=== PATIENT | female | born 1990 | race African-American/Black ===

== ENCOUNTER 2018-04-25 23:25 | Inpatient (IN) | payer SELFPAY ==
[~2018-04-25] VITALS: Ht 162.6 cm; Wt 60.8 kg
[2018-04-25] MEDS ORDERED: IV NORMAL SALINE 1000ML BAG 1,000 ML IV SCH (23:28)
[2018-04-25] MEDS ORDERED: ALBUTEROL SULFATE 2.5 MG/3 ML NEBU. ONE ×2 (23:47→23:48)
[2018-04-25 23:54] LABS: BASO # 0.1 x10^3/uL (0.0-0.2); BASO % 0 % (0-3); EOS # 1.5 x10^3/uL (0.0-0.7); EOS % 9 % (0-3); HEMATOCRIT 40.3 % (36.0-47.0); HEMOGLOBIN 13.2 g/dL (12.0-15.5); LYMPH % 46 % (24-48); MEAN CORPUSCULAR HEMOGLOBIN 34 pg (25-35); MEAN CORPUSCULAR HGB CONC 33 g/dL (31-37); MEAN CORPUSCULAR VOLUME 102 fL (79-100); MONO # 0.9 x10^3/uL (0.0-1.1); MONO % 5 % (0-9); NEUT # 6.9 x10^3uL (1.8-7.7); NEUT % 40 % (31-73); PLATELET COUNT 351 x10^3/uL (140-400); RED BLOOD COUNT 3.93 x10^6/uL (3.50-5.40); RED CELL DISTRIBUTION WIDTH 13.4 % (11.5-14.5); WHITE BLOOD COUNT 17.3 x10^3/uL (4.0-11.0)
[2018-04-25] MEDS ORDERED: MORPHINE SULFATE 4 MG/ML VIAL. ONE (23:56)
--- NOTE | 2018-04-25 23:56 | PHYS DOC ---
Adult General Chief Complaint Chief Complaint: DYSPNEA/RESPIRATOY DISTRESS HPI HPI Patient is an unknown aged female who presents via EMS with report of shortness of breath. EMS indicates that patient had called with shortness of breath and had been alert initially but was uncooperative with questioning. Patient was given a total of 2 DuoNeb treatments while in route and EMS indicates that approximately 3 minutes prior to arrival patient went unresponsive and started with what they described his guppy breathing. Unable to obtain any further history due to severity of patient condition. Review of Systems Review of Systems Constitutional: Unable to obtain[] Respiratory: Positive wheezing and shortness of breath [] Cardiovascular: Unable to obtain history[] GI: Unable to obtain history[] Neurologic: Positive decreased mental status[] Unable to fully assess review of systems due to severity of patient condition. Current Medications Current Medications Current Medications Medications (Trade) Dose Ordered Sig/Neo Start Time Stop Time Status Last Admin Dose Admin Albuterol Sulfate (Ventolin Neb Soln) 2.5 mg STK-MED ONCE 04/25/18 23:48 04/25/18 23:49 DC Chlorhexidine Gluconate (Peridex) 15 ml BID 04/26/18 09:00 Etomidate (Amidate) 20 mg 1X ONCE 04/26/18 01:00 04/26/18 01:01 DC 04/25/18 23:36 20 MG Magnesium Sulfate 50 ml @ 25 mls/hr 1X ONCE 04/26/18 01:30 04/26/18 03:29 04/26/18 01:40 25 MLS/HR Methylprednisolone Sodium Succinate (SOLU-Medrol 125MG VIAL) 125 mg 1X ONCE 04/26/18 01:30 04/26/18 01:31 DC 04/26/18 01:40 125 MG Midazolam HCl (Versed) 5 mg 1X ONCE 04/26/18 02:15 04/26/18 02:16 04/26/18 01:58 5 MG Morphine Sulfate (Morphine Sulfate) 4 mg 1X ONCE 04/26/18 00:00 04/26/18 00:09 DC 04/25/18 23:58 4 MG Piperacillin Sod/ Tazobactam Sod 3.375 gm/Sodium Chloride 50 ml @ 100 mls/hr 1X ONCE 04/26/18 02:30 04/26/18 02:59 Propofol 100 ml @ 0 mls/hr CONT PRN 04/26/18 00:15 04/26/18 00:04 0.8 MLS/HR Sodium Chloride 1,000 ml @ 1,000 mls/hr 1X ONCE 04/26/18 02:00 04/26/18 02:59 Vancomycin HCl 250 ml @ 250 mls/hr 1X ONCE 04/26/18 02:00 04/26/18 02:59 Vecuronium Durant (Norcuron Bolus) 10 mg 1X ONCE 04/26/18 01:00 04/26/18 01:01 DC 04/25/18 23:36 10 MG Allergies Allergies Allergies Coded Allergies Type Severity Reaction Last Updated Verified Unable to Assess 04/26/18 No Physical Exam Physical Exam Constitutional: Well developed, well nourished, in respiratory distress. [] HENT: Normocephalic, atraumatic, bilateral external ears normal, oropharynx moist, no oral exudates, nose normal. [] Eyes: PERRLA, conjunctiva normal, no discharge. [] Neck: Normal range of motion, positive JVD. [] Cardiovascular: Tachycardic rate with regular rhythm[] Lungs & Thorax: Diminished breath sounds are noted bilaterally with inspiratory and expiratory wheezes[] Abdomen: Bowel sounds normal, soft. [] Skin: Warm, dry, no erythema, no rash. [] Extremities: No tenderness, no cyanosis, no clubbing, no edema. [] Neurologic: Patient unresponsive on exam. Unable to fully assess neurological status due to mental state. [] Current Patient Data Vital Signs Vital Signs Date Time Temp Pulse Resp B/P (MAP) Pulse Ox O2 Delivery O2 Flow Rate FiO2 04/26/18 00:46 100 Ventilator 04/25/18 23:58 16 04/25/18 23:25 97.8 117 159/98 (118) 25.0 97.8 Lab Values Laboratory Tests Test 04/25/18 23:25 04/25/18 23:50 04/26/18 00:15 04/26/18 00:24 White Blood Count 17.3 x10^3/uL (4.0-11.0) H Red Blood Count 3.93 x10^6/uL (3.50-5.40) Hemoglobin 13.2 g/dL (12.0-15.5) Hematocrit 40.3 % (36.0-47.0) Mean Corpuscular Volume 102 fL (79-100) H Mean Corpuscular Hemoglobin 34 pg (25-35) Mean Corpuscular Hemoglobin Concent 33 g/dL (31-37) Red Cell Distribution Width 13.4 % (11.5-14.5) Platelet Count 351 x10^3/uL (140-400) Neutrophils (%) (Auto) 40 % (31-73) Lymphocytes (%) (Auto) 46 % (24-48) Monocytes (%) (Auto) 5 % (0-9) Eosinophils (%) (Auto) 9 % (0-3) H Basophils (%) (Auto) 0 % (0-3) Neutrophils # (Auto) 6.9 x10^3uL (1.8-7.7) Lymphocytes # (Auto) 8.0 x10^3/uL (1.0-4.8) H Monocytes # (Auto) 0.9 x10^3/uL (0.0-1.1) Eosinophils # (Auto) 1.5 x10^3/uL (0.0-0.7) H Basophils # (Auto) 0.1 x10^3/uL (0.0-0.2) Segmented Neutrophils % 40 % (35-66) Lymphocytes % 51 % (24-48) H Monocytes % 5 % (0-10) Eosinophils % 4 % (0-5) Platelet Estimate Adequate (ADEQUATE) D-Dimer (Nisreen) < 0.27 ug/mlFEU Sodium Level 144 mmol/L (136-145) Potassium Level 4.1 mmol/L (3.5-5.1) Chloride Level 105 mmol/L (98-107) Carbon Dioxide Level 30 mmol/L (21-32) Anion Gap 9 (6-14) Blood Urea Nitrogen 9 mg/dL (7-20) Creatinine 1.1 mg/dL (0.6-1.0) H Estimated GFR (Cockcroft-Gault) 73.2 BUN/Creatinine Ratio 8 (6-20) Glucose Level 209 mg/dL (70-99) H Lactic Acid Level 7.0 mmol/L (0.4-2.0) *H Calcium Level 9.0 mg/dL (8.5-10.1) Total Bilirubin 0.7 mg/dL (0.2-1.0) Aspartate Amino Transferase (AST) 21 U/L (15-37) Alanine Aminotransferase (ALT) 24 U/L (14-59) Alkaline Phosphatase 64 U/L (46-116) Troponin I Quantitative < 0.017 ng/mL (0.000-0.055) WB-Ivj-D-Type Natriuretic Peptide 81 pg/mL (0-124) Total Protein 7.4 g/dL (6.4-8.2) Albumin 3.8 g/dL (3.4-5.0) Albumin/Globulin Ratio 1.1 (1.0-1.7) Urine Collection Type Unknown Urine Color Yellow Urine Clarity Cloudy Urine pH 5.5 Urine Specific [place] 1.015 Urine Protein >=300 mg/dL (NEG-TRACE) Urine Glucose (UA) 500 mg/dL (NEG) Urine Ketones (Stick) Negative mg/dL (NEG) Urine Blood Large (NEG) Urine Nitrite Negative (NEG) Urine Bilirubin Negative (NEG) Urine Urobilinogen Dipstick 0.2 mg/dL (0.2 mg/dL) Urine Leukocyte Esterase Negative (NEG) Urine RBC 20-40 /HPF (0-2) Urine WBC Occ /HPF (0-4) Urine Squamous Epithelial Cells Mod /LPF Urine Amorphous Sediment Present /HPF Urine Bacteria 0 /HPF (0-FEW) Urine Mucus Marked /LPF Urine Opiates Screen Neg (NEG) Urine Methadone Screen Neg (NEG) Urine Barbiturates Neg (NEG) Urine Phencyclidine Screen Neg (NEG) Urine Amphetamine/Methamphetamine Neg (NEG) Urine Benzodiazepines Screen Neg (NEG) Urine Cocaine Screen Neg (NEG) Urine Cannabinoids Screen Pos (NEG) Urine Ethyl Alcohol Neg (NEG) O2 Saturation 99 % (92-99) Arterial Blood pH 7.10 (7.35-7.45) *L Arterial Blood pCO2 at Patient Temp 82 mmHg (35-46) *H Arterial Blood pO2 at Patient Temp 233 mmHg (85-108) H Arterial Blood HCO3 25 mmol/L (21-28) Arterial Blood Base Excess -7 mmol/L (-3-3) L FiO2 100 Influenza Type A Antigen Negative (NEGATIVE) Influenza Type B Antigen Negative (NEGATIVE) Laboratory Tests 04/25/18 23:25 Laboratory Tests 04/25/18 23:25 EKG EKG [] Radiology/Procedures Radiology/Procedures [] Course & Med Decision Making Course & Med Decision Making Pertinent Labs and Imaging studies reviewed. (See chart for details) Patient moved to room upon arrival was evaluated by ER medical staff and patient noted to be on nonrebreather mask with inadequate respirations. Patient unresponsive and at this point, patient and deemed appropriate for intubation. Endotracheal Intubation by me: Pre assessment performed. See preceding note for details. Pre-oxygenation performed with 100% oxygen RSI: Performed w/o complication or hypoxic events. Medications as ordered. Blade: #3 glide scope ET Tube: 7.5 cm Depth: 23 cm at the lip Intubation confirmed by colorimetric CO2, equal breath sounds, quiet over the stomach. Chest X-ray 1V Interpreted by me: cm above the kandy ET tube. Normal soft tissue, No pneumothorax. Patient's case has been discussed with Dr. Dixon. Patient will be admitted to ICU. Dr. Finch has also been consulted and agrees with current care. A total of 50 minutes of critical care time has been spent on this patient exclusive of separately billable procedures and has been inclusive of direct [id number] patient care, ordering and reviewing of both laboratory and radiological studies, discussion of patient's case with consultants, and finally on documentation of this patient's medical record.. Dragon Disclaimer Dragon Disclaimer This electronic medical record was generated, in whole or in part, using a voice recognition dictation system. Departure Departure Impression: Primary Impression: Acute hypoxemic respiratory failure Disposition: ADMITTED INPATIENT Admitting Physician: Nico Dixon Condition: GUARDED ANGELICA JOHNSON Jr. DO Apr 25, 2018 23:56
[2018-04-25] MEDS ORDERED: PROPOFOL 50 ML IV ONE (23:57)
[2018-04-26] VITALS (23 sets, daily range): BP systolic 82–130; BP diastolic 48–72
[2018-04-26] MEDS ORDERED: MORPHINE SULFATE 4 MG/ML VIAL. IV ONE
[2018-04-26 00:02] LABS: BILIRUBIN,URINE NEGATIVE (NEG); CLARITY,URINE CLOUDY; COLOR,URINE YELLOW; NITRITE,URINE NEGATIVE (NEG); PH,URINE 5.5; PROTEIN,URINE >=300 mg/dL (NEG-TRACE); UROBILINOGEN,URINE 0.2 mg/dL (0.2 mg/dL)
[2018-04-26] MEDS: PROPOFOL 100 ML IV PRN ×5 (00:04→21:57)
[2018-04-26 00:07] LABS: RBC,URINE 20-40 /HPF (0-2)
[2018-04-26 00:08] LABS: CREATININE 1.1 mg/dL (0.6-1.0); GFR 73.2; POTASSIUM 4.1 mmol/L (3.5-5.1)
[2018-04-26 00:08] LABS: AMORPHOUS SEDIMENT,UR PRESENT /HPF; BACTERIA,URINE 0 /HPF (0-FEW); SQUAMOUS EPITHELIAL CELL,UR MOD /LPF; WBC,URINE OCC /HPF (0-4)
[2018-04-26 00:16] LABS: ALBUMIN 3.8 g/dL (3.4-5.0); TOTAL PROTEIN 7.4 g/dL (6.4-8.2)
[2018-04-26 00:16] LABS: BASE EXCESS ABG -7 mmol/L (-3-3); HCO3 ABG 25 mmol/L (21-28); PO2 ABG 233 mmHg (85-108); SAT O2 ABG 99 % (92-99)
[2018-04-26 00:17] LABS: ALBUMIN/GLOBULIN RATIO 1.1 (1.0-1.7); TOTAL BILIRUBIN 0.7 mg/dL (0.2-1.0)
[2018-04-26 00:20] LABS: % EOS 4 % (0-5); % LYMPHS 51 % (24-48); % MONOS 5 % (0-10); % SEGS 40 % (35-66); PLT ESTIMATE ADEQUATE (ADEQUATE)
[2018-04-26 00:50] LABS: INFLUENZA A PATIENT NEGATIVE (NEGATIVE); INFLUENZA B PATIENT NEGATIVE (NEGATIVE)
[2018-04-26] MEDS ORDERED: VECURONIUM BOLUS 10 MG VIAL. IV ONE ×2 (01:00→06:59)
[2018-04-26] MEDS ORDERED: ETOMIDATE 20 MG/10 ML VIAL. IV ONE ×2 (01:00→06:59)
[2018-04-26 01:01] LABS: PCO2 ABG 82 mmHg (35-46)
[2018-04-26 01:02] LABS: FIO2 ABG 100
[2018-04-26] MEDS ORDERED: methylPREDNISolone SOD SUCC PF 125 MG/2 ML VIAL. IV ONE (01:30)
[2018-04-26] MEDS ORDERED: MAGNESIUM SULFATE 2GM 50 ML IV ONE (01:30)
[2018-04-26 01:47] LABS: BARBITURATES NEG (NEG); BENZODIAZEPINES NEG (NEG); CANNABINOIDS POS (NEG); COCAINE NEG (NEG); METHADONE NEG (NEG); OPIATES NEG (NEG); PHENCYCLIDINE NEG (NEG)
[2018-04-26 01:48] LABS: AMPHETAMINE/METHAMPHETAMINE NEG (NEG)
[2018-04-26] MEDS ORDERED: IV NORMAL SALINE 1000ML BAG 1,000 ML IV ONE ×3 (02:00→21:30)
[2018-04-26] MEDS ORDERED: VANCOMYCIN 1GM IVPB FOR OMNI 250 ML IV ONE (02:00)
[2018-04-26] MEDS ORDERED: MIDAZOLAM HCL/PF 5 MG/5 ML VIAL. IV ONE (02:15)
[2018-04-26] MEDS ORDERED: PROPOFOL 50 ML IV ONE (02:30)
[2018-04-26] MEDS ORDERED: PIPERACILLIN/TAZOBACTAM 3.375 GM in IV NORMAL SALINE 50ML 50 ML IV ONE (02:30)
[2018-04-26] MEDS: IV NORMAL SALINE 1000ML BAG 1,000 ML IV SCH ×3 (04:03→16:54)
[2018-04-26] MEDS ORDERED: VENTOLIN HFA18 GM INH (05:21)
[2018-04-26 05:40] LABS: BASE EXCESS ABG -3 mmol/L (-3-3); HCO3 ABG 23 mmol/L (21-28); PCO2 ABG 45 mmHg (35-46); PO2 ABG 407 mmHg (85-108); SAT O2 ABG 100 % (92-99)
[2018-04-26] MEDS: methylPREDNISolone SOD SUCC PF 125 MG/2 ML VIAL. IV SCH ×3 (05:49→17:48)
[2018-04-26 05:56] LABS: FIO2 ABG 80
--- NOTE | 2018-04-26 06:37 | EKG ---
[facility] [address] [place] [address] Test Date: 2018-04-26 Test Time: 00:06:31 Pat Name: NOELLE AGUIRRE Department: Room: [facility] Gender: F Diagnostic Technologist: : 1990 Requested By: ANGELICA JOHNSON Order Number: [id number] Reading MD: Measurements Intervals [place] Rate: 82 P: 80 WY: 154 QRS: 82 QRSD: 80 T: 59 QT: 390 QTc: 459 Interpretive Statements SINUS RHYTHM NO SPECIFIC ECG ABNORMALITIES RI6.01 No previous ECG available for comparison
[2018-04-26] MEDS ORDERED: MIDAZOLAM HCL/PF 5 MG/5 ML VIAL. ONE (07:00)
--- NOTE | 2018-04-26 07:55 | RAD ---
Portable chest, 04/25/2018: HISTORY: Difficulty breathing And ET tube is in place with its tip located 5 cm above the kandy. An NG tube extends into the proximal aspect of the stomach. A sidehole is projected over the region of the GE junction. The heart size is normal. The lungs are clear. There is no evidence of pleural fluid or pneumothorax. IMPRESSION: 1. The ET tube and NG tube are in satisfactory positions. 2. No acute cardiopulmonary abnormality is detected. Electronically signed by: Jackson Joseph MD (04/26/2018 7:52 AM) [facility]
[2018-04-26] MEDS ORDERED: IPRATRPIUM/ALBUTEROL 0.5/2.5MG 3 ML NEBU. NEB SCH (08:00)
[2018-04-26] MEDS: CHLORHEXIDINE 0.12% 15 ML MOUTHWASH. MM SCH ×2 (08:56→20:35)
[2018-04-26] MEDS ORDERED: ALBUTEROL SULFATE 2.5 MG/3 ML NEBU. NEB PRN (10:30)
--- NOTE | 2018-04-26 10:33 | PDOC ---
PULMONARY PROGRESS NOTES Vitals Vital Signs Date Time Temp Pulse Resp B/P (MAP) Pulse Ox O2 Delivery O2 Flow Rate FiO2 04/26/18 10:12 99 Ventilator 04/26/18 10:00 100 20 111/72 (85) 04/26/18 08:00 98.6 98.6 04/25/18 23:29 25.0 Labs Laboratory Tests Test 04/25/18 23:25 04/25/18 23:50 04/26/18 00:15 04/26/18 00:24 White Blood Count 17.3 x10^3/uL (4.0-11.0) Red Blood Count 3.93 x10^6/uL (3.50-5.40) Hemoglobin 13.2 g/dL (12.0-15.5) Hematocrit 40.3 % (36.0-47.0) Mean Corpuscular Volume 102 fL (79-100) Mean Corpuscular Hemoglobin 34 pg (25-35) Mean Corpuscular Hemoglobin Concent 33 g/dL (31-37) Red Cell Distribution Width 13.4 % (11.5-14.5) Platelet Count 351 x10^3/uL (140-400) Neutrophils (%) (Auto) 40 % (31-73) Lymphocytes (%) (Auto) 46 % (24-48) Monocytes (%) (Auto) 5 % (0-9) Eosinophils (%) (Auto) 9 % (0-3) Basophils (%) (Auto) 0 % (0-3) Neutrophils # (Auto) 6.9 x10^3uL (1.8-7.7) Lymphocytes # (Auto) 8.0 x10^3/uL (1.0-4.8) Monocytes # (Auto) 0.9 x10^3/uL (0.0-1.1) Eosinophils # (Auto) 1.5 x10^3/uL (0.0-0.7) Basophils # (Auto) 0.1 x10^3/uL (0.0-0.2) Segmented Neutrophils % 40 % (35-66) Lymphocytes % 51 % (24-48) Monocytes % 5 % (0-10) Eosinophils % 4 % (0-5) Platelet Estimate Adequate (ADEQUATE) D-Dimer (Nisreen) < 0.27 ug/mlFEU Sodium Level 144 mmol/L (136-145) Potassium Level 4.1 mmol/L (3.5-5.1) Chloride Level 105 mmol/L (98-107) Carbon Dioxide Level 30 mmol/L (21-32) Anion Gap 9 (6-14) Blood Urea Nitrogen 9 mg/dL (7-20) Creatinine 1.1 mg/dL (0.6-1.0) Estimated GFR (Cockcroft-Gault) 73.2 BUN/Creatinine Ratio 8 (6-20) Glucose Level 209 mg/dL (70-99) Lactic Acid Level 7.0 mmol/L (0.4-2.0) Calcium Level 9.0 mg/dL (8.5-10.1) Total Bilirubin 0.7 mg/dL (0.2-1.0) Aspartate Amino Transf (AST/SGOT) 21 U/L (15-37) Alanine Aminotransferase (ALT/SGPT) 24 U/L (14-59) Alkaline Phosphatase 64 U/L (46-116) Troponin I Quantitative < 0.017 ng/mL (0.000-0.055) PX-Klp-U-Type Natriuretic Peptide 81 pg/mL (0-124) Total Protein 7.4 g/dL (6.4-8.2) Albumin 3.8 g/dL (3.4-5.0) Albumin/Globulin Ratio 1.1 (1.0-1.7) Procalcitonin < 0.10 ng/mL (0.00-0.10) Urine Collection Type Unknown Urine Color Yellow Urine Clarity Cloudy Urine pH 5.5 Urine Specific [place] 1.015 Urine Protein >=300 mg/dL (NEG-TRACE) Urine Glucose (UA) 500 mg/dL (NEG) Urine Ketones (Stick) Negative mg/dL (NEG) Urine Blood Large (NEG) Urine Nitrite Negative (NEG) Urine Bilirubin Negative (NEG) Urine Urobilinogen Dipstick 0.2 mg/dL (0.2 mg/dL) Urine Leukocyte Esterase Negative (NEG) Urine RBC 20-40 /HPF (0-2) Urine WBC Occ /HPF (0-4) Urine Squamous Epithelial Cells Mod /LPF Urine Amorphous Sediment Present /HPF Urine Bacteria 0 /HPF (0-FEW) Urine Mucus Marked /LPF Urine Opiates Screen Neg (NEG) Urine Methadone Screen Neg (NEG) Urine Barbiturates Neg (NEG) Urine Phencyclidine Screen Neg (NEG) Urine Amphetamine/Methamphetamine Neg (NEG) Urine Benzodiazepines Screen Neg (NEG) Urine Cocaine Screen Neg (NEG) Urine Cannabinoids Screen Pos (NEG) Urine Ethyl Alcohol Neg (NEG) O2 Saturation 99 % (92-99) Arterial Blood pH 7.10 (7.35-7.45) Arterial Blood pCO2 at Patient Temp 82 mmHg (35-46) Arterial Blood pO2 at Patient Temp 233 mmHg (85-108) Arterial Blood HCO3 25 mmol/L (21-28) Arterial Blood Base Excess -7 mmol/L (-3-3) FiO2 100 Influenza Type A Antigen Negative (NEGATIVE) Influenza Type B Antigen Negative (NEGATIVE) Test 04/26/18 03:26 04/26/18 05:05 O2 Saturation 100 % (92-99) Arterial Blood pH 7.33 (7.35-7.45) Arterial Blood pCO2 at Patient Temp 45 mmHg (35-46) Arterial Blood pO2 at Patient Temp 407 mmHg (85-108) Arterial Blood HCO3 23 mmol/L (21-28) Arterial Blood Base Excess -3 mmol/L (-3-3) FiO2 80 Lactic Acid Level 2.9 mmol/L (0.4-2.0) Laboratory Tests Test 04/25/18 23:25 04/25/18 23:50 04/26/18 00:15 04/26/18 00:24 White Blood Count 17.3 x10^3/uL (4.0-11.0) Red Blood Count 3.93 x10^6/uL (3.50-5.40) Hemoglobin 13.2 g/dL (12.0-15.5) Hematocrit 40.3 % (36.0-47.0) Mean Corpuscular Volume 102 fL (79-100) Mean Corpuscular Hemoglobin 34 pg (25-35) Mean Corpuscular Hemoglobin Concent 33 g/dL (31-37) Red Cell Distribution Width 13.4 % (11.5-14.5) Platelet Count 351 x10^3/uL (140-400) Neutrophils (%) (Auto) 40 % (31-73) Lymphocytes (%) (Auto) 46 % (24-48) Monocytes (%) (Auto) 5 % (0-9) Eosinophils (%) (Auto) 9 % (0-3) Basophils (%) (Auto) 0 % (0-3) Neutrophils # (Auto) 6.9 x10^3uL (1.8-7.7) Lymphocytes # (Auto) 8.0 x10^3/uL (1.0-4.8) Monocytes # (Auto) 0.9 x10^3/uL (0.0-1.1) Eosinophils # (Auto) 1.5 x10^3/uL (0.0-0.7) Basophils # (Auto) 0.1 x10^3/uL (0.0-0.2) Segmented Neutrophils % 40 % (35-66) Lymphocytes % 51 % (24-48) Monocytes % 5 % (0-10) Eosinophils % 4 % (0-5) Platelet Estimate Adequate (ADEQUATE) D-Dimer (Nisreen) < 0.27 ug/mlFEU Sodium Level 144 mmol/L (136-145) Potassium Level 4.1 mmol/L (3.5-5.1) Chloride Level 105 mmol/L (98-107) Carbon Dioxide Level 30 mmol/L (21-32) Anion Gap 9 (6-14) Blood Urea Nitrogen 9 mg/dL (7-20) Creatinine 1.1 mg/dL (0.6-1.0) Estimated GFR (Cockcroft-Gault) 73.2 BUN/Creatinine Ratio 8 (6-20) Glucose Level 209 mg/dL (70-99) Lactic Acid Level 7.0 mmol/L (0.4-2.0) Calcium Level 9.0 mg/dL (8.5-10.1) Total Bilirubin 0.7 mg/dL (0.2-1.0) Aspartate Amino Transf (AST/SGOT) 21 U/L (15-37) Alanine Aminotransferase (ALT/SGPT) 24 U/L (14-59) Alkaline Phosphatase 64 U/L (46-116) Troponin I Quantitative < 0.017 ng/mL (0.000-0.055) ZM-Udq-N-Type Natriuretic Peptide 81 pg/mL (0-124) Total Protein 7.4 g/dL (6.4-8.2) Albumin 3.8 g/dL (3.4-5.0) Albumin/Globulin Ratio 1.1 (1.0-1.7) Procalcitonin < 0.10 ng/mL (0.00-0.10) Urine Collection Type Unknown Urine Color Yellow Urine Clarity Cloudy Urine pH 5.5 Urine Specific [place] 1.015 Urine Protein >=300 mg/dL (NEG-TRACE) Urine Glucose (UA) 500 mg/dL (NEG) Urine Ketones (Stick) Negative mg/dL (NEG) Urine Blood Large (NEG) Urine Nitrite Negative (NEG) Urine Bilirubin Negative (NEG) Urine Urobilinogen Dipstick 0.2 mg/dL (0.2 mg/dL) Urine Leukocyte Esterase Negative (NEG) Urine RBC 20-40 /HPF (0-2) Urine WBC Occ /HPF (0-4) Urine Squamous Epithelial Cells Mod /LPF Urine Amorphous Sediment Present /HPF Urine Bacteria 0 /HPF (0-FEW) Urine Mucus Marked /LPF Urine Opiates Screen Neg (NEG) Urine Methadone Screen Neg (NEG) Urine Barbiturates Neg (NEG) Urine Phencyclidine Screen Neg (NEG) Urine Amphetamine/Methamphetamine Neg (NEG) Urine Benzodiazepines Screen Neg (NEG) Urine Cocaine Screen Neg (NEG) Urine Cannabinoids Screen Pos (NEG) Urine Ethyl Alcohol Neg (NEG) O2 Saturation 99 % (92-99) Arterial Blood pH 7.10 (7.35-7.45) Arterial Blood pCO2 at Patient Temp 82 mmHg (35-46) Arterial Blood pO2 at Patient Temp 233 mmHg (85-108) Arterial Blood HCO3 25 mmol/L (21-28) Arterial Blood Base Excess -7 mmol/L (-3-3) FiO2 100 Influenza Type A Antigen Negative (NEGATIVE) Influenza Type B Antigen Negative (NEGATIVE) Test 04/26/18 03:26 04/26/18 05:05 O2 Saturation 100 % (92-99) Arterial Blood pH 7.33 (7.35-7.45) Arterial Blood pCO2 at Patient Temp 45 mmHg (35-46) Arterial Blood pO2 at Patient Temp 407 mmHg (85-108) Arterial Blood HCO3 23 mmol/L (21-28) Arterial Blood Base Excess -3 mmol/L (-3-3) FiO2 80 Lactic Acid Level 2.9 mmol/L (0.4-2.0) Medications Active Scripts Medications Dose Route/Sig Max Daily Dose Days Date Category Ventolin Hfa Inhaler (Albuterol Sulfate) 18 Gm Hfa.aer.ad 2 Puff INH Q4HRS PRN 04/26/18 Reported Impression . FULL NOTE DICTATED THANKS ASTHMA/RF SEE ORDERS YESI CASTANO MD Apr 26, 2018 10:33
[2018-04-26] MEDS: FAMOTIDINE 20 MG/2 ML VIAL IVP SCH ×2 (10:56→20:35)
[2018-04-26] MEDS: ENOXAPARIN 40 MG/0.4 ML SYRINGE. SQ SCH (10:57)
[2018-04-26] MEDS ORDERED: CHLORHEXIDINE 0.12% 15 ML MOUTHWASH. MM SCH (11:00)
--- NOTE | 2018-04-26 11:05 | HP ---
ADMIT DATE: 04/26/2018 CHIEF COMPLAINT: Respiratory failure. HISTORY OF PRESENT ILLNESS: The patient is a pleasant younger female who presented as a respiratory failure with EMS. Initially, we really did not even know her name. Apparently, now we have now discovered her real name. While in the ER, she had to be intubated because she was guppy breathing, had a fulminant respiratory failure. I have discussed the case with the ER physician. We have admitted her to the ICU room, would be consulting Pulmonary. PAST MEDICAL HISTORY: Unknown, but under her medication she is on albuterol, so I suspect she has asthma. ALLERGIES: None. FAMILY HISTORY: We think she probably has asthma in the family. SOCIAL HISTORY: I am not sure if she smokes, drinks or take drugs. She is on the vent. MEDICATIONS: Reviewed. She is on albuterol. REVIEW OF SYSTEMS: Unable to obtain. The patient is intubated. PHYSICAL EXAMINATION: VITAL SIGNS: Temperature afebrile, pulse 100, respirations 20, blood pressure 106/57, O2 sat 98%. GENERAL: She is on the ventilator. HEART: Distant S1, S2. LUNGS: Diffuse wheezing. ABDOMEN: Soft, positive bowel sounds. EXTREMITIES: Trace edema. SKIN: No rash. ENDOCRINE: No thyromegaly. LYMPHATICS: No cervical nodes. HEMATOPOIETIC: No bruising. NEUROLOGICAL: She is sedated. PSYCHIATRIC: Unobtainable. GENITOURINARY: Normal. LABORATORY DATA: White count 17. Lactic acid high at 7. Troponin is 0. Chest x-ray shows ET tube placement, no acute diseases. ASSESSMENT AND PLAN: Respiratory failure, suspect secondary to asthma. The patient has been admitted to the ICU. We are going to give her DuoNebs, try to wean her off the vent. We have consulted Pulmonary. Try to get her home meds going once we figure out what those are. Frequent labs. Full code. PROGNOSIS: Guarded. FIONA PICKENS DO DR: KATE/cassius JOB#: [id number] / [id number]
[2018-04-26] MEDS: IPRATRPIUM/ALBUTEROL 0.5/2.5MG 3 ML NEBU. NEB SCH ×3 (11:48→20:06)
--- NOTE | 2018-04-26 11:51 | CONS ---
DATE OF CONSULTATION: 04/26/2018 ATTENDING PHYSICIAN: Dr. Dixon. REASON FOR CONSULTATION: The patient seen in pulmonary consultation at the request of Dr. Dixon for acute status asthmaticus, intubated. HISTORY OF PRESENT ILLNESS: The patient is a 27-year-old that has a history of asthma. Her mother, who happens to work here in the laboratory, indicated that the patient has had asthma most of her life. Her mother really does not know specifics about her asthma. She did have asthma as a young child and was taking some medication. At one point, she was on Advair. Apparently, the patient's asthma is somewhat been under control for the last several years with minimal amount of albuterol use. The patient does not see a physician. She has no insurance. She is currently on no medication. Last night, she presented with EMS, apparently EMS was summoned at home for shortness of air. She was alert initially, but then became unresponsive. She was given some DuoNebs. Upon arrival to the Emergency Department, the patient went unresponsive. She had some "guppy" breathing. She was intubated and placed on mechanical ventilation. I discussed the case last evening with the Emergency Room physician, Dr. George. The patient was intubated, placed on pressure control ventilation. Initially, she required high pressure around 40-50 to give her a decent tidal volume of approximately 200-300. She had an arterial blood gas revealing a pH of 7.10, PaCO2 of 82, pO2 of 233. This morning, the patient continues to be on mechanical ventilation. She is sedated. Her arterial blood gas revealed a pH of 7.33, PaCO2 of 45, PaO2 of 407. Serology for influenza was negative. Toxicology screen was positive for cannabinoid. UA was likewise positive for possible infection. Her lactic acid level has come down nicely. White count is elevated. Hemoglobin and hematocrit were noted. Chest x-ray was reviewed, no acute infiltrates. PAST MEDICAL AND PAST SURGICAL HISTORY: Otherwise, unremarkable. REVIEW OF SYSTEMS: Unobtainable. MEDICATIONS: Current medication list was reviewed. She is receiving IV steroids along with nebulized treatments. PHYSICAL EXAMINATION: GENERAL: The patient is sedated. VITAL SIGNS: Currently stable. O2 saturation greater than 92%. HEENT: Eyes, the sclerae were nonicteric. NECK: Jugular venous distention was not elevated. No lymphadenopathy. CHEST: Full expansion. LUNGS: Adequate airway movement with no wheezes. CARDIOVASCULAR: Regular rate and rhythm with S1, S2; no S3. ABDOMEN: Soft, nontender, nondistended. EXTREMITIES: No clubbing, cyanosis or edema. NEUROLOGIC: The patient was sedated. DIAGNOSTIC DATA: Labs and chest x-ray as indicated above. IMPRESSION: 1. Status asthmaticus. 2. Acute respiratory failure secondary to above. 3. Positive drug screen for cannabinoids. 4. Possible urinary tract infection. PLAN: 1. Case was discussed with mother at the bedside. We will continue current support, possibly trial in the morning and extubate. 2. Continue steroids. 3. Antibiotic for urinary tract infection. 4. Initiate tube feeding. 5. DVT and GI prophylaxis. I do appreciate the privilege in sharing in the patient's care. YESI CASTANO MD DR: GATO/cassius JOB#: [id number] / [id number]
[2018-04-26] MEDS ORDERED: ACETAMINOPHEN 650 MG/20.3 ML SOLUTION. PEG PRN (16:45)
[2018-04-26] MEDS: fentaNYL PF VIAL 100 MCG/2 ML VIAL IV PRN ×3 (16:53→19:42)
[2018-04-27] VITALS (19 sets, daily range): BP systolic 111–168; BP diastolic 60–108
[2018-04-27] MEDS: IV NORMAL SALINE 1000ML BAG 1,000 ML IV SCH ×3 (00:21→16:15)
[2018-04-27] MEDS: methylPREDNISolone SOD SUCC PF 125 MG/2 ML VIAL. IV SCH ×5 (00:21→23:56)
[2018-04-27] MEDS: PROPOFOL 100 ML IV PRN ×2 (02:55→08:23)
[2018-04-27 04:40] LABS: BASO % 0 % (0-3); EOS % 0 % (0-3); HEMATOCRIT 31.5 % (36.0-47.0); HEMOGLOBIN 10.6 g/dL (12.0-15.5); LYMPH # 0.6 x10^3/uL (1.0-4.8); LYMPH % 5 % (24-48); MEAN CORPUSCULAR HEMOGLOBIN 34 pg (25-35); MEAN CORPUSCULAR HGB CONC 34 g/dL (31-37); MEAN CORPUSCULAR VOLUME 99 fL (79-100); MONO # 0.3 x10^3/uL (0.0-1.1); MONO % 2 % (0-9); NEUT # 11.7 x10^3uL (1.8-7.7); NEUT % 93 % (31-73); PLATELET COUNT 212 x10^3/uL (140-400); RED BLOOD COUNT 3.17 x10^6/uL (3.50-5.40); RED CELL DISTRIBUTION WIDTH 13.9 % (11.5-14.5); WHITE BLOOD COUNT 12.6 x10^3/uL (4.0-11.0)
[2018-04-27 05:09] LABS: CALCIUM 8.5 mg/dL (8.5-10.1); CREATININE 0.7 mg/dL (0.6-1.0); GFR 120.6; POTASSIUM 4.4 mmol/L (3.5-5.1)
[2018-04-27] MEDS: IPRATRPIUM/ALBUTEROL 0.5/2.5MG 3 ML NEBU. NEB SCH ×4 (07:09→19:40)
[2018-04-27 07:36] LABS: BASE EXCESS ABG -3 mmol/L (-3-3); HCO3 ABG 22 mmol/L (21-28); PCO2 ABG 39 mmHg (35-46); PO2 ABG 150 mmHg (85-108); SAT O2 ABG 99 % (92-99)
[2018-04-27 07:39] LABS: FIO2 ABG 40
[2018-04-27] MEDS: CHLORHEXIDINE 0.12% 15 ML MOUTHWASH. MM SCH (07:50)
--- NOTE | 2018-04-27 07:50 | RAD ---
Portable chest, 04/27/2018: HISTORY: Respiratory failure Comparison is made to a study from 04/25/2018. The ET tube and NG tube remain in place in satisfactory positions. The heart size is normal. No pulmonary infiltrate is seen. There is no evidence of pleural fluid or pneumothorax. IMPRESSION: 1. Stable tube positions. 2. No acute cardiopulmonary abnormality is detected. Electronically signed by: Jackson Joseph MD (04/27/2018 7:46 AM) [facility]
[2018-04-27] MEDS: FAMOTIDINE 20 MG/2 ML VIAL IVP SCH (08:22)
[2018-04-27] MEDS: ENOXAPARIN 40 MG/0.4 ML SYRINGE. SQ SCH (08:22)
[2018-04-27] MEDS: fentaNYL PF VIAL 100 MCG/2 ML VIAL IV PRN (09:25)
--- NOTE | 2018-04-27 10:17 | PDOC ---
PULMONARY PROGRESS NOTES Subjective intubated/ sedated Vitals Vital Signs Date Time Temp Pulse Resp B/P (MAP) Pulse Ox O2 Delivery O2 Flow Rate FiO2 04/27/18 10:05 20 100 Ventilator 04/27/18 07:00 100 126/71 (89) 04/27/18 04:00 98.5 98.5 Lungs: Clear Cardiovascular: S1 Abdomen: Soft Neuro Exam: Alert Extremities: No Edema Skin: Warm Labs Laboratory Tests Test 04/25/18 23:25 04/25/18 23:50 04/26/18 00:15 04/26/18 00:24 White Blood Count 17.3 x10^3/uL (4.0-11.0) Red Blood Count 3.93 x10^6/uL (3.50-5.40) Hemoglobin 13.2 g/dL (12.0-15.5) Hematocrit 40.3 % (36.0-47.0) Mean Corpuscular Volume 102 fL (79-100) Mean Corpuscular Hemoglobin 34 pg (25-35) Mean Corpuscular Hemoglobin Concent 33 g/dL (31-37) Red Cell Distribution Width 13.4 % (11.5-14.5) Platelet Count 351 x10^3/uL (140-400) Neutrophils (%) (Auto) 40 % (31-73) Lymphocytes (%) (Auto) 46 % (24-48) Monocytes (%) (Auto) 5 % (0-9) Eosinophils (%) (Auto) 9 % (0-3) Basophils (%) (Auto) 0 % (0-3) Neutrophils # (Auto) 6.9 x10^3uL (1.8-7.7) Lymphocytes # (Auto) 8.0 x10^3/uL (1.0-4.8) Monocytes # (Auto) 0.9 x10^3/uL (0.0-1.1) Eosinophils # (Auto) 1.5 x10^3/uL (0.0-0.7) Basophils # (Auto) 0.1 x10^3/uL (0.0-0.2) Segmented Neutrophils % 40 % (35-66) Lymphocytes % 51 % (24-48) Monocytes % 5 % (0-10) Eosinophils % 4 % (0-5) Platelet Estimate Adequate (ADEQUATE) D-Dimer (Nisreen) < 0.27 ug/mlFEU Sodium Level 144 mmol/L (136-145) Potassium Level 4.1 mmol/L (3.5-5.1) Chloride Level 105 mmol/L (98-107) Carbon Dioxide Level 30 mmol/L (21-32) Anion Gap 9 (6-14) Blood Urea Nitrogen 9 mg/dL (7-20) Creatinine 1.1 mg/dL (0.6-1.0) Estimated GFR (Cockcroft-Gault) 73.2 BUN/Creatinine Ratio 8 (6-20) Glucose Level 209 mg/dL (70-99) Lactic Acid Level 7.0 mmol/L (0.4-2.0) Calcium Level 9.0 mg/dL (8.5-10.1) Total Bilirubin 0.7 mg/dL (0.2-1.0) Aspartate Amino Transf (AST/SGOT) 21 U/L (15-37) Alanine Aminotransferase (ALT/SGPT) 24 U/L (14-59) Alkaline Phosphatase 64 U/L (46-116) Troponin I Quantitative < 0.017 ng/mL (0.000-0.055) KD-Kpx-D-Type Natriuretic Peptide 81 pg/mL (0-124) Total Protein 7.4 g/dL (6.4-8.2) Albumin 3.8 g/dL (3.4-5.0) Albumin/Globulin Ratio 1.1 (1.0-1.7) Procalcitonin < 0.10 ng/mL (0.00-0.10) Urine Collection Type Unknown Urine Color Yellow Urine Clarity Cloudy Urine pH 5.5 Urine Specific [place] 1.015 Urine Protein >=300 mg/dL (NEG-TRACE) Urine Glucose (UA) 500 mg/dL (NEG) Urine Ketones (Stick) Negative mg/dL (NEG) Urine Blood Large (NEG) Urine Nitrite Negative (NEG) Urine Bilirubin Negative (NEG) Urine Urobilinogen Dipstick 0.2 mg/dL (0.2 mg/dL) Urine Leukocyte Esterase Negative (NEG) Urine RBC 20-40 /HPF (0-2) Urine WBC Occ /HPF (0-4) Urine Squamous Epithelial Cells Mod /LPF Urine Amorphous Sediment Present /HPF Urine Bacteria 0 /HPF (0-FEW) Urine Mucus Marked /LPF Urine Opiates Screen Neg (NEG) Urine Methadone Screen Neg (NEG) Urine Barbiturates Neg (NEG) Urine Phencyclidine Screen Neg (NEG) Urine Amphetamine/Methamphetamine Neg (NEG) Urine Benzodiazepines Screen Neg (NEG) Urine Cocaine Screen Neg (NEG) Urine Cannabinoids Screen Pos (NEG) Urine Ethyl Alcohol Neg (NEG) O2 Saturation 99 % (92-99) Arterial Blood pH 7.10 (7.35-7.45) Arterial Blood pCO2 at Patient Temp 82 mmHg (35-46) Arterial Blood pO2 at Patient Temp 233 mmHg (85-108) Arterial Blood HCO3 25 mmol/L (21-28) Arterial Blood Base Excess -7 mmol/L (-3-3) FiO2 100 Influenza Type A Antigen Negative (NEGATIVE) Influenza Type B Antigen Negative (NEGATIVE) Test 04/26/18 03:26 04/26/18 04:00 04/26/18 05:05 04/27/18 04:15 O2 Saturation 100 % (92-99) Arterial Blood pH 7.33 (7.35-7.45) Arterial Blood pCO2 at Patient Temp 45 mmHg (35-46) Arterial Blood pO2 at Patient Temp 407 mmHg (85-108) Arterial Blood HCO3 23 mmol/L (21-28) Arterial Blood Base Excess -3 mmol/L (-3-3) FiO2 80 Nasal Screen MRSA (PCR) Negative (Negative) Lactic Acid Level 2.9 mmol/L (0.4-2.0) White Blood Count 12.6 x10^3/uL (4.0-11.0) Red Blood Count 3.17 x10^6/uL (3.50-5.40) Hemoglobin 10.6 g/dL (12.0-15.5) Hematocrit 31.5 % (36.0-47.0) Mean Corpuscular Volume 99 fL (79-100) Mean Corpuscular Hemoglobin 34 pg (25-35) Mean Corpuscular Hemoglobin Concent 34 g/dL (31-37) Red Cell Distribution Width 13.9 % (11.5-14.5) Platelet Count 212 x10^3/uL (140-400) Neutrophils (%) (Auto) 93 % (31-73) Lymphocytes (%) (Auto) 5 % (24-48) Monocytes (%) (Auto) 2 % (0-9) Eosinophils (%) (Auto) 0 % (0-3) Basophils (%) (Auto) 0 % (0-3) Neutrophils # (Auto) 11.7 x10^3uL (1.8-7.7) Lymphocytes # (Auto) 0.6 x10^3/uL (1.0-4.8) Monocytes # (Auto) 0.3 x10^3/uL (0.0-1.1) Eosinophils # (Auto) 0.0 x10^3/uL (0.0-0.7) Basophils # (Auto) 0.0 x10^3/uL (0.0-0.2) Sodium Level 144 mmol/L (136-145) Potassium Level 4.4 mmol/L (3.5-5.1) Chloride Level 112 mmol/L (98-107) Carbon Dioxide Level 23 mmol/L (21-32) Anion Gap 9 (6-14) Blood Urea Nitrogen 8 mg/dL (7-20) Creatinine 0.7 mg/dL (0.6-1.0) Estimated GFR (Cockcroft-Gault) 120.6 Glucose Level 110 mg/dL (70-99) Calcium Level 8.5 mg/dL (8.5-10.1) Test 04/27/18 07:30 O2 Saturation 99 % (92-99) Arterial Blood pH 7.37 (7.35-7.45) Arterial Blood pCO2 at Patient Temp 39 mmHg (35-46) Arterial Blood pO2 at Patient Temp 150 mmHg (85-108) Arterial Blood HCO3 22 mmol/L (21-28) Arterial Blood Base Excess -3 mmol/L (-3-3) FiO2 40 Laboratory Tests Test 04/27/18 04:15 04/27/18 07:30 White Blood Count 12.6 x10^3/uL (4.0-11.0) Red Blood Count 3.17 x10^6/uL (3.50-5.40) Hemoglobin 10.6 g/dL (12.0-15.5) Hematocrit 31.5 % (36.0-47.0) Mean Corpuscular Volume 99 fL (79-100) Mean Corpuscular Hemoglobin 34 pg (25-35) Mean Corpuscular Hemoglobin Concent 34 g/dL (31-37) Red Cell Distribution Width 13.9 % (11.5-14.5) Platelet Count 212 x10^3/uL (140-400) Neutrophils (%) (Auto) 93 % (31-73) Lymphocytes (%) (Auto) 5 % (24-48) Monocytes (%) (Auto) 2 % (0-9) Eosinophils (%) (Auto) 0 % (0-3) Basophils (%) (Auto) 0 % (0-3) Neutrophils # (Auto) 11.7 x10^3uL (1.8-7.7) Lymphocytes # (Auto) 0.6 x10^3/uL (1.0-4.8) Monocytes # (Auto) 0.3 x10^3/uL (0.0-1.1) Eosinophils # (Auto) 0.0 x10^3/uL (0.0-0.7) Basophils # (Auto) 0.0 x10^3/uL (0.0-0.2) Sodium Level 144 mmol/L (136-145) Potassium Level 4.4 mmol/L (3.5-5.1) Chloride Level 112 mmol/L (98-107) Carbon Dioxide Level 23 mmol/L (21-32) Anion Gap 9 (6-14) Blood Urea Nitrogen 8 mg/dL (7-20) Creatinine 0.7 mg/dL (0.6-1.0) Estimated GFR (Cockcroft-Gault) 120.6 Glucose Level 110 mg/dL (70-99) Calcium Level 8.5 mg/dL (8.5-10.1) O2 Saturation 99 % (92-99) Arterial Blood pH 7.37 (7.35-7.45) Arterial Blood pCO2 at Patient Temp 39 mmHg (35-46) Arterial Blood pO2 at Patient Temp 150 mmHg (85-108) Arterial Blood HCO3 22 mmol/L (21-28) Arterial Blood Base Excess -3 mmol/L (-3-3) FiO2 40 Medications Active Scripts Medications Dose Route/Sig Max Daily Dose Days Date Category Ventolin Hfa Inhaler (Albuterol Sulfate) 18 Gm Hfa.aer.ad 2 Puff INH Q4HRS PRN 04/26/18 Reported Comments CXR 04/27 clear Impression . 1. Status asthmaticus. 2. Acute respiratory failure secondary to above. 3. Positive drug screen for cannabinoids. 4. Possible urinary tract infection. Plan . 1. Case was discussed with mother at the bedside. No wheezing.CPAP trial and extubate today 2. Continue steroids. 3. Antibiotic for urinary tract infection. 4. tube feeding. 5. DVT and GI prophylaxis. JENNIFER LEVINE MD Apr 27, 2018 10:17
[2018-04-27 11:31] LABS: BASE EXCESS ABG -1 mmol/L (-3-3); HCO3 ABG 24 mmol/L (21-28); PCO2 ABG 36 mmHg (35-46); PO2 ABG 197 mmHg (85-108); SAT O2 ABG 99 % (92-99)
[2018-04-27 11:38] LABS: FIO2 ABG 40
--- NOTE | 2018-04-27 12:26 | PDOC ---
PROGRESS NOTES Chief Complaint Chief Complaint Status asthmaticus. Acute respiratory failure secondary to above. Positive drug screen for cannabinoids. Possible urinary tract infection. History of Present Illness History of Present Illness Pt seen and examined IN ICU on thent but now on Spont respirations with sedation off DW Mom and RN Vitals Vitals Vital Signs Date Time Temp Pulse Resp B/P (MAP) Pulse Ox O2 Delivery O2 Flow Rate FiO2 04/27/18 12:03 Nasal Cannula 2.0 04/27/18 12:00 99.3 107 15 157/98 (117) 97 99.3 Physical Exam General: Alert, Cooperative Heart: Regular rate, Normal S1 Lungs: Clear Abdomen: Normal bowel sounds, Soft Extremities: No clubbing, No cyanosis Skin: No rashes, No breakdown Labs LABS Laboratory Tests Test 04/27/18 04:15 04/27/18 07:30 04/27/18 11:25 White Blood Count 12.6 x10^3/uL (4.0-11.0) Red Blood Count 3.17 x10^6/uL (3.50-5.40) Hemoglobin 10.6 g/dL (12.0-15.5) Hematocrit 31.5 % (36.0-47.0) Mean Corpuscular Volume 99 fL (79-100) Mean Corpuscular Hemoglobin 34 pg (25-35) Mean Corpuscular Hemoglobin Concent 34 g/dL (31-37) Red Cell Distribution Width 13.9 % (11.5-14.5) Platelet Count 212 x10^3/uL (140-400) Neutrophils (%) (Auto) 93 % (31-73) Lymphocytes (%) (Auto) 5 % (24-48) Monocytes (%) (Auto) 2 % (0-9) Eosinophils (%) (Auto) 0 % (0-3) Basophils (%) (Auto) 0 % (0-3) Neutrophils # (Auto) 11.7 x10^3uL (1.8-7.7) Lymphocytes # (Auto) 0.6 x10^3/uL (1.0-4.8) Monocytes # (Auto) 0.3 x10^3/uL (0.0-1.1) Eosinophils # (Auto) 0.0 x10^3/uL (0.0-0.7) Basophils # (Auto) 0.0 x10^3/uL (0.0-0.2) Sodium Level 144 mmol/L (136-145) Potassium Level 4.4 mmol/L (3.5-5.1) Chloride Level 112 mmol/L (98-107) Carbon Dioxide Level 23 mmol/L (21-32) Anion Gap 9 (6-14) Blood Urea Nitrogen 8 mg/dL (7-20) Creatinine 0.7 mg/dL (0.6-1.0) Estimated GFR (Cockcroft-Gault) 120.6 Glucose Level 110 mg/dL (70-99) Calcium Level 8.5 mg/dL (8.5-10.1) O2 Saturation 99 % (92-99) 99 % (92-99) Arterial Blood pH 7.37 (7.35-7.45) 7.43 (7.35-7.45) Arterial Blood pCO2 at Patient Temp 39 mmHg (35-46) 36 mmHg (35-46) Arterial Blood pO2 at Patient Temp 150 mmHg (85-108) 197 mmHg (85-108) Arterial Blood HCO3 22 mmol/L (21-28) 24 mmol/L (21-28) Arterial Blood Base Excess -3 mmol/L (-3-3) -1 mmol/L (-3-3) FiO2 40 40 Review of Systems Review of Systems unable to obtain Assessment and Plan Assessmemt and Plan Problems Medical Problems: (1) Acute hypoxemic respiratory failure Status: Acute Status asthmaticus. Acute respiratory failure secondary to above. Positive drug screen for cannabinoids. Possible urinary tract infection Plan Hope to extubate today? IV steroids Nebs O2 Home meds Labs. Comment Review of Relevant I have reviewed the following items lynette (where applicable) has been applied. Labs Laboratory Tests Test 04/25/18 23:25 04/25/18 23:50 04/26/18 00:15 04/26/18 00:24 White Blood Count 17.3 x10^3/uL (4.0-11.0) Red Blood Count 3.93 x10^6/uL (3.50-5.40) Hemoglobin 13.2 g/dL (12.0-15.5) Hematocrit 40.3 % (36.0-47.0) Mean Corpuscular Volume 102 fL (79-100) Mean Corpuscular Hemoglobin 34 pg (25-35) Mean Corpuscular Hemoglobin Concent 33 g/dL (31-37) Red Cell Distribution Width 13.4 % (11.5-14.5) Platelet Count 351 x10^3/uL (140-400) Neutrophils (%) (Auto) 40 % (31-73) Lymphocytes (%) (Auto) 46 % (24-48) Monocytes (%) (Auto) 5 % (0-9) Eosinophils (%) (Auto) 9 % (0-3) Basophils (%) (Auto) 0 % (0-3) Neutrophils # (Auto) 6.9 x10^3uL (1.8-7.7) Lymphocytes # (Auto) 8.0 x10^3/uL (1.0-4.8) Monocytes # (Auto) 0.9 x10^3/uL (0.0-1.1) Eosinophils # (Auto) 1.5 x10^3/uL (0.0-0.7) Basophils # (Auto) 0.1 x10^3/uL (0.0-0.2) Segmented Neutrophils % 40 % (35-66) Lymphocytes % 51 % (24-48) Monocytes % 5 % (0-10) Eosinophils % 4 % (0-5) Platelet Estimate Adequate (ADEQUATE) D-Dimer (Nisreen) < 0.27 ug/mlFEU Sodium Level 144 mmol/L (136-145) Potassium Level 4.1 mmol/L (3.5-5.1) Chloride Level 105 mmol/L (98-107) Carbon Dioxide Level 30 mmol/L (21-32) Anion Gap 9 (6-14) Blood Urea Nitrogen 9 mg/dL (7-20) Creatinine 1.1 mg/dL (0.6-1.0) Estimated GFR (Cockcroft-Gault) 73.2 BUN/Creatinine Ratio 8 (6-20) Glucose Level 209 mg/dL (70-99) Lactic Acid Level 7.0 mmol/L (0.4-2.0) Calcium Level 9.0 mg/dL (8.5-10.1) Total Bilirubin 0.7 mg/dL (0.2-1.0) Aspartate Amino Transf (AST/SGOT) 21 U/L (15-37) Alanine Aminotransferase (ALT/SGPT) 24 U/L (14-59) Alkaline Phosphatase 64 U/L (46-116) Troponin I Quantitative < 0.017 ng/mL (0.000-0.055) TM-Hsv-M-Type Natriuretic Peptide 81 pg/mL (0-124) Total Protein 7.4 g/dL (6.4-8.2) Albumin 3.8 g/dL (3.4-5.0) Albumin/Globulin Ratio 1.1 (1.0-1.7) Procalcitonin < 0.10 ng/mL (0.00-0.10) Urine Collection Type Unknown Urine Color Yellow Urine Clarity Cloudy Urine pH 5.5 Urine Specific [place] 1.015 Urine Protein >=300 mg/dL (NEG-TRACE) Urine Glucose (UA) 500 mg/dL (NEG) Urine Ketones (Stick) Negative mg/dL (NEG) Urine Blood Large (NEG) Urine Nitrite Negative (NEG) Urine Bilirubin Negative (NEG) Urine Urobilinogen Dipstick 0.2 mg/dL (0.2 mg/dL) Urine Leukocyte Esterase Negative (NEG) Urine RBC 20-40 /HPF (0-2) Urine WBC Occ /HPF (0-4) Urine Squamous Epithelial Cells Mod /LPF Urine Amorphous Sediment Present /HPF Urine Bacteria 0 /HPF (0-FEW) Urine Mucus Marked /LPF Urine Opiates Screen Neg (NEG) Urine Methadone Screen Neg (NEG) Urine Barbiturates Neg (NEG) Urine Phencyclidine Screen Neg (NEG) Urine Amphetamine/Methamphetamine Neg (NEG) Urine Benzodiazepines Screen Neg (NEG) Urine Cocaine Screen Neg (NEG) Urine Cannabinoids Screen Pos (NEG) Urine Ethyl Alcohol Neg (NEG) O2 Saturation 99 % (92-99) Arterial Blood pH 7.10 (7.35-7.45) Arterial Blood pCO2 at Patient Temp 82 mmHg (35-46) Arterial Blood pO2 at Patient Temp 233 mmHg (85-108) Arterial Blood HCO3 25 mmol/L (21-28) Arterial Blood Base Excess -7 mmol/L (-3-3) FiO2 100 Influenza Type A Antigen Negative (NEGATIVE) Influenza Type B Antigen Negative (NEGATIVE) Test 04/26/18 03:26 04/26/18 04:00 04/26/18 05:05 04/27/18 04:15 O2 Saturation 100 % (92-99) Arterial Blood pH 7.33 (7.35-7.45) Arterial Blood pCO2 at Patient Temp 45 mmHg (35-46) Arterial Blood pO2 at Patient Temp 407 mmHg (85-108) Arterial Blood HCO3 23 mmol/L (21-28) Arterial Blood Base Excess -3 mmol/L (-3-3) FiO2 80 Nasal Screen MRSA (PCR) Negative (Negative) Lactic Acid Level 2.9 mmol/L (0.4-2.0) White Blood Count 12.6 x10^3/uL (4.0-11.0) Red Blood Count 3.17 x10^6/uL (3.50-5.40) Hemoglobin 10.6 g/dL (12.0-15.5) Hematocrit 31.5 % (36.0-47.0) Mean Corpuscular Volume 99 fL (79-100) Mean Corpuscular Hemoglobin 34 pg (25-35) Mean Corpuscular Hemoglobin Concent 34 g/dL (31-37) Red Cell Distribution Width 13.9 % (11.5-14.5) Platelet Count 212 x10^3/uL (140-400) Neutrophils (%) (Auto) 93 % (31-73) Lymphocytes (%) (Auto) 5 % (24-48) Monocytes (%) (Auto) 2 % (0-9) Eosinophils (%) (Auto) 0 % (0-3) Basophils (%) (Auto) 0 % (0-3) Neutrophils # (Auto) 11.7 x10^3uL (1.8-7.7) Lymphocytes # (Auto) 0.6 x10^3/uL (1.0-4.8) Monocytes # (Auto) 0.3 x10^3/uL (0.0-1.1) Eosinophils # (Auto) 0.0 x10^3/uL (0.0-0.7) Basophils # (Auto) 0.0 x10^3/uL (0.0-0.2) Sodium Level 144 mmol/L (136-145) Potassium Level 4.4 mmol/L (3.5-5.1) Chloride Level 112 mmol/L (98-107) Carbon Dioxide Level 23 mmol/L (21-32) Anion Gap 9 (6-14) Blood Urea Nitrogen 8 mg/dL (7-20) Creatinine 0.7 mg/dL (0.6-1.0) Estimated GFR (Cockcroft-Gault) 120.6 Glucose Level 110 mg/dL (70-99) Calcium Level 8.5 mg/dL (8.5-10.1) Test 04/27/18 07:30 04/27/18 11:25 O2 Saturation 99 % (92-99) 99 % (92-99) Arterial Blood pH 7.37 (7.35-7.45) 7.43 (7.35-7.45) Arterial Blood pCO2 at Patient Temp 39 mmHg (35-46) 36 mmHg (35-46) Arterial Blood pO2 at Patient Temp 150 mmHg (85-108) 197 mmHg (85-108) Arterial Blood HCO3 22 mmol/L (21-28) 24 mmol/L (21-28) Arterial Blood Base Excess -3 mmol/L (-3-3) -1 mmol/L (-3-3) FiO2 40 40 Laboratory Tests Test 04/27/18 04:15 04/27/18 07:30 04/27/18 11:25 White Blood Count 12.6 x10^3/uL (4.0-11.0) Red Blood Count 3.17 x10^6/uL (3.50-5.40) Hemoglobin 10.6 g/dL (12.0-15.5) Hematocrit 31.5 % (36.0-47.0) Mean Corpuscular Volume 99 fL (79-100) Mean Corpuscular Hemoglobin 34 pg (25-35) Mean Corpuscular Hemoglobin Concent 34 g/dL (31-37) Red Cell Distribution Width 13.9 % (11.5-14.5) Platelet Count 212 x10^3/uL (140-400) Neutrophils (%) (Auto) 93 % (31-73) Lymphocytes (%) (Auto) 5 % (24-48) Monocytes (%) (Auto) 2 % (0-9) Eosinophils (%) (Auto) 0 % (0-3) Basophils (%) (Auto) 0 % (0-3) Neutrophils # (Auto) 11.7 x10^3uL (1.8-7.7) Lymphocytes # (Auto) 0.6 x10^3/uL (1.0-4.8) Monocytes # (Auto) 0.3 x10^3/uL (0.0-1.1) Eosinophils # (Auto) 0.0 x10^3/uL (0.0-0.7) Basophils # (Auto) 0.0 x10^3/uL (0.0-0.2) Sodium Level 144 mmol/L (136-145) Potassium Level 4.4 mmol/L (3.5-5.1) Chloride Level 112 mmol/L (98-107) Carbon Dioxide Level 23 mmol/L (21-32) Anion Gap 9 (6-14) Blood Urea Nitrogen 8 mg/dL (7-20) Creatinine 0.7 mg/dL (0.6-1.0) Estimated GFR (Cockcroft-Gault) 120.6 Glucose Level 110 mg/dL (70-99) Calcium Level 8.5 mg/dL (8.5-10.1) O2 Saturation 99 % (92-99) 99 % (92-99) Arterial Blood pH 7.37 (7.35-7.45) 7.43 (7.35-7.45) Arterial Blood pCO2 at Patient Temp 39 mmHg (35-46) 36 mmHg (35-46) Arterial Blood pO2 at Patient Temp 150 mmHg (85-108) 197 mmHg (85-108) Arterial Blood HCO3 22 mmol/L (21-28) 24 mmol/L (21-28) Arterial Blood Base Excess -3 mmol/L (-3-3) -1 mmol/L (-3-3) FiO2 40 40 Microbiology 04/26/18 Blood Culture - Preliminary, Resulted NO GROWTH AFTER 1 DAY Medications Current Medications Sodium Chloride 1,000 ml @ 100 mls/hr Q10H IV Last administered on 04/26/18at 00:03; Start 04/25/18 at 23:28; Stop 04/26/18 at 09:27; Status DC Albuterol Sulfate (Ventolin Neb Soln) 2.5 mg STK-MED ONCE .ROUTE ; Start at 23:47; Stop 04/25/18 at 23:48; Status DC Albuterol Sulfate (Ventolin Neb Soln) 2.5 mg STK-MED ONCE .ROUTE ; Start at 23:48; Stop 04/25/18 at 23:49; Status DC Morphine Sulfate (Morphine Sulfate) 4 mg STK-MED ONCE .ROUTE ; Start 04/25/18 at 23:56; Stop 04/25/18 at 23:57; Status DC Propofol 50 ml @ As Directed STK-MED ONCE IV ; Start 04/25/18 at 23:57; Stop at 23:58; Status DC Morphine Sulfate (Morphine Sulfate) 4 mg 1X ONCE IV Last administered on at 23:58; Start 04/26/18 at 00:00; Stop 04/26/18 at 00:09; Status DC Propofol 100 ml @ 0 mls/hr CONT PRN IV SEE PROTOCOL Last administered on at 08:23; Start 04/26/18 at 00:15 Chlorhexidine Gluconate (Peridex) 15 ml BID MM Last administered on 04/26/18at 20:35; Start 04/26/18 at 09:00 Vecuronium Riddle (Norcuron Bolus) 10 mg 1X ONCE IV Last administered on 04/25at 23:36; Start 04/26/18 at 01:00; Stop 04/26/18 at 01:01; Status DC Etomidate (Amidate) 20 mg 1X ONCE IV Last administered on 04/25/18at 23:36; Start 04/26/18 at 01:00; Stop 04/26/18 at 01:01; Status DC Magnesium Sulfate 50 ml @ 25 mls/hr 1X ONCE IV Last administered on 04/26/18at 01:40; Start 04/26/18 at 01:30; Stop 04/26/18 at 03:29; Status DC Methylprednisolone Sodium Succinate (SOLU-Medrol 125MG VIAL) 125 mg 1X ONCE IV Last administered on 04/26/18at 01:40; Start 04/26/18 at 01:30; Stop 04/26/18 at 01:31; Status DC Vancomycin HCl 250 ml @ 250 mls/hr 1X ONCE IV Last administered on 04/26/18at 06:28; Start 04/26/18 at 02:00; Stop 04/26/18 at 02:59; Status DC Piperacillin Sod/ Tazobactam Sod 3.375 gm/Sodium Chloride 50 ml @ 100 mls/hr 1X ONCE IV Last administered on 04/26/18at 05:49; Start 04/26/18 at 02:30; Stop 04/26/18 at 02:59; Status DC Sodium Chloride 1,000 ml @ 1,000 mls/hr 1X ONCE IV ; Start 04/26/18 at 02:00; Stop 04/26/18 at 02:59; Status DC Midazolam HCl (Versed) 5 mg 1X ONCE IV Last administered on 04/26/18at 01:58; Start 04/26/18 at 02:15; Stop 04/26/18 at 02:16; Status DC Sodium Chloride 1,000 ml @ 125 mls/hr Q8H IV Last administered on 04/26/18at 16 :54; Start 04/26/18 at 02:00; Stop 04/27/18 at 01:59; Status DC Albuterol/ Ipratropium (Duoneb) 3 ml RTQID NEB Last administered on 04/26/18at 08:15; Start 04/26/18 at 08:00; Stop 04/26/18 at 10:41; Status DC Methylprednisolone Sodium Succinate (SOLU-Medrol 125MG VIAL) 125 mg Q6HRS IV Last administered on 04/27/18at 11:41; Start 04/26/18 at 06:00 Propofol 50 ml @ As Directed STK-MED ONCE IV ; Start 04/26/18 at 02:30; Stop at 02:31; Status DC Sodium Chloride 1,000 ml @ 1,000 mls/hr 1X ONCE IV Last administered on at 02:43; Start 04/26/18 at 02:45; Stop 04/26/18 at 03:44; Status DC Etomidate (Amidate) 20 mg STK-MED ONCE IV ; Start 04/26/18 at 06:59; Stop at 07:00; Status DC Vecuronium Riddle (Norcuron Bolus) 10 mg STK-MED ONCE IV ; Start 04/26/18 at 06 :59; Stop 04/26/18 at 07:00; Status DC Midazolam HCl (Versed) 5 mg STK-MED ONCE .ROUTE ; Start 04/26/18 at 07:00; Stop 04/26/18 at 07:01; Status DC Fentanyl Citrate (Fentanyl 2ml Vial) 25 mcg PRN Q1HR PRN IV SEE COMMENTS Last administered on 04/27/18at 09:25; Start 04/26/18 at 10:30 Chlorhexidine Gluconate (Peridex) 15 ml BID MM ; Start 04/26/18 at 11:00; Stop 04/26/18 at 11:00; Status DC Famotidine (Pepcid Vial) 20 mg BID IVP Last administered on 04/27/18at 08:22; Start 04/26/18 at 11:00 Enoxaparin Sodium (Lovenox 40mg Syringe) 40 mg DAILY SQ Last administered on at 08:22; Start 04/26/18 at 11:00 Levofloxacin/ Dextrose 100 ml @ 100 mls/hr Q24H IV Last administered on at 16:53; Start 04/26/18 at 11:00 Albuterol Sulfate (Ventolin Neb Soln) 2.5 mg PRN Q2HR PRN NEB [id number]; Start 04/26/18 at 10:30 Albuterol/ Ipratropium (Duoneb) 3 ml RTQID NEB Last administered on 04/27/18at 12:18; Start 04/26/18 at 12:00 Acetaminophen (Tylenol) 650 mg PRN Q6HRS PRN PEG MILD PAIN / TEMP Last administered on 04/26/18at 16:53; Start 04/26/18 at 16:45 Sodium Chloride 1,000 ml @ 1,000 mls/hr 1X ONCE IV Last administered on at 21:17; Start 04/26/18 at 21:30; Stop 04/26/18 at 22:29; Status DC Sodium Chloride 1,000 ml @ 125 mls/hr Q8H IV Last administered on 04/27/18at 06 :20; Start 04/27/18 at 00:15 Active Scripts Active Reported Ventolin Hfa Inhaler (Albuterol Sulfate) 18 Gm Hfa.aer.ad 2 Puff INH Q4HRS PRN Vitals/I & O Vital Sign - Last 24 Hours 04/26/18 04/26/18 04/26/18 04/26/18 13:00 13:40 14:00 15:00 Pulse 113 114 112 Resp 19 19 20 B/P (MAP) 105/56 (72) 116/65 (82) 110/60 (77) Pulse Ox 98 99 99 98 O2 Delivery Ventilator Ventilator Ventilator Ventilator 04/26/18 04/26/18 04/26/18 04/26/18 16:00 16:00 16:05 16:53 Temp 100.2 100.2 Pulse 110 Resp 19 19 B/P (MAP) 119/58 (78) Pulse Ox 100 99 99 O2 Delivery Ventilator Mechanical Ventilator Ventilator Ventilator 04/26/18 04/26/18 04/26/18 04/26/18 17:00 17:56 18:00 18:06 Pulse 106 107 Resp 20 19 20 B/P (MAP) 118/61 (80) 100/56 (71) Pulse Ox 99 99 98 99 O2 Delivery Ventilator Ventilator Ventilator Ventilator 04/26/18 04/26/18 04/26/18 04/26/18 19:00 19:42 20:00 20:00 Temp 99.2 99.2 Pulse 99 98 Resp 20 20 20 B/P (MAP) 93/48 (63) 101/52 (68) Pulse Ox 99 98 99 O2 Delivery Ventilator Ventilator Mechanical Ventilator Ventilator 04/26/18 04/26/18 04/26/18 04/26/18 20:07 21:00 22:00 23:00 Pulse 90 89 80 Resp 20 20 20 B/P (MAP) 104/55 (71) 113/65 (81) 114/64 (81) Pulse Ox 100 99 99 99 O2 Delivery Ventilator Ventilator Ventilator Ventilator 04/27/18 04/27/18 04/27/18 04/27/18 00:00 00:00 00:10 01:00 Temp 98.5 98.5 Pulse 80 88 Resp 20 20 B/P (MAP) 111/66 (81) 111/60 (77) Pulse Ox 99 99 99 O2 Delivery Ventilator Mechanical Ventilator Ventilator Ventilator 04/27/18 04/27/18 04/27/18 04/27/18 02:00 02:20 03:00 04:00 Temp 98.5 98.5 Pulse 84 84 74 Resp 20 20 20 B/P (MAP) 118/66 (83) 131/82 (98) 120/78 (92) Pulse Ox 99 99 100 99 O2 Delivery Ventilator Ventilator Ventilator Ventilator 04/27/18 04/27/18 04/27/18 04/27/18 04:00 04:08 05:00 06:00 Pulse 71 79 Resp 20 20 B/P (MAP) 125/76 (92) 123/75 (91) Pulse Ox 100 100 99 O2 Delivery Mechanical Ventilator Ventilator Ventilator Ventilator 04/27/18 04/27/18 04/27/18 04/27/18 06:01 07:00 07:14 08:00 Temp 98.1 98.1 Pulse 100 88 Resp 20 20 B/P (MAP) 126/71 (89) 131/73 (92) Pulse Ox 100 99 99 100 O2 Delivery Ventilator Ventilator Ventilator 04/27/18 04/27/18 04/27/18 04/27/18 08:00 09:00 09:25 10:00 Pulse 114 94 Resp 20 20 20 B/P (MAP) 137/77 (97) 144/90 (108) Pulse Ox 100 99 100 O2 Delivery Mechanical Ventilator Ventilator Ventilator Ventilator 04/27/18 04/27/18 04/27/18 04/27/18 10:05 11:00 12:00 12:03 Temp 99.3 99.3 Pulse 98 107 Resp 20 20 15 B/P (MAP) 138/96 (110) 157/98 (117) Pulse Ox 100 98 97 O2 Delivery Ventilator Ventilator Nasal Cannula Nasal Cannula O2 Flow Rate 2.0 2.0 Intake and Output 04/26/18 04/26/18 04/27/18 15:00 23:00 07:00 Intake Total 1704.5 ml 3238 ml Output Total 605 ml 820 ml 1410 ml Balance -605 ml 884.5 ml 1828 ml FIONA PICKENS III DO Apr 27, 2018 12:26
[2018-04-28] MEDS: IV NORMAL SALINE 1000ML BAG 1,000 ML IV SCH ×2 (00:15→08:15)
[2018-04-28 03:57] VITALS: BP 129/87
[2018-04-28 05:29] LABS: BASO % 0 % (0-3); EOS % 0 % (0-3); HEMATOCRIT 29.7 % (36.0-47.0); LYMPH # 0.7 x10^3/uL (1.0-4.8); LYMPH % 5 % (24-48); MEAN CORPUSCULAR HEMOGLOBIN 34 pg (25-35); MEAN CORPUSCULAR HGB CONC 34 g/dL (31-37); MEAN CORPUSCULAR VOLUME 100 fL (79-100); MONO # 0.4 x10^3/uL (0.0-1.1); MONO % 3 % (0-9); NEUT # 14.2 x10^3uL (1.8-7.7); NEUT % 93 % (31-73); PLATELET COUNT 211 x10^3/uL (140-400); RED BLOOD COUNT 2.97 x10^6/uL (3.50-5.40); RED CELL DISTRIBUTION WIDTH 14.2 % (11.5-14.5); WHITE BLOOD COUNT 15.4 x10^3/uL (4.0-11.0)
[2018-04-28 05:43] LABS: CALCIUM 8.7 mg/dL (8.5-10.1); CREATININE 0.7 mg/dL (0.6-1.0); GFR 120.6; POTASSIUM 4.2 mmol/L (3.5-5.1)
[2018-04-28] MEDS: methylPREDNISolone SOD SUCC PF 125 MG/2 ML VIAL. IV SCH (06:05)
--- NOTE | 2018-04-28 07:48 | RAD ---
AP chest x-ray HISTORY: Shortness of breath. COMPARISON: Chest x-ray April 27, 2018. FINDINGS: The patient has been extubated. Heart size is normal. Mediastinal silhouette is normal. Indistinct density at the left lateral lung base is stable likely representing mild atelectasis. Right lung clear. No pneumothorax or pleural effusions. Bones are unremarkable. IMPRESSION: Patient has been extubated. Mild atelectasis at the left lung base. Electronically signed by: Eben Burks MD (04/28/2018 7:44 AM) [facility]
[2018-04-28] MEDS: ENOXAPARIN 40 MG/0.4 ML SYRINGE. SQ SCH (08:49)
[2018-04-28] MEDS: IPRATRPIUM/ALBUTEROL 0.5/2.5MG 3 ML NEBU. NEB SCH ×4 (09:13→19:48)
--- NOTE | 2018-04-28 10:32 | PDOC ---
PULMONARY PROGRESS NOTES Subjective extubated 04/27 doing well on ra Vitals Vital Signs Date Time Temp Pulse Resp B/P (MAP) Pulse Ox O2 Delivery O2 Flow Rate FiO2 04/28/18 09:14 97 Room Air 04/28/18 03:57 98.6 86 24 129/87 (101) 98.6 04/27/18 14:00 2.0 General: Alert, No acute distress Lungs: Clear Cardiovascular: S1 Abdomen: Soft Neuro Exam: Alert Extremities: No Edema Skin: Warm Labs Laboratory Tests Test 04/27/18 04:15 04/27/18 07:30 04/27/18 11:25 04/28/18 04:30 White Blood Count 12.6 x10^3/uL (4.0-11.0) 15.4 x10^3/uL (4.0-11.0) Red Blood Count 3.17 x10^6/uL (3.50-5.40) 2.97 x10^6/uL (3.50-5.40) Hemoglobin 10.6 g/dL (12.0-15.5) 10.0 g/dL (12.0-15.5) Hematocrit 31.5 % (36.0-47.0) 29.7 % (36.0-47.0) Mean Corpuscular Volume 99 fL (79-100) 100 fL (79-100) Mean Corpuscular Hemoglobin 34 pg (25-35) 34 pg (25-35) Mean Corpuscular Hemoglobin Concent 34 g/dL (31-37) 34 g/dL (31-37) Red Cell Distribution Width 13.9 % (11.5-14.5) 14.2 % (11.5-14.5) Platelet Count 212 x10^3/uL (140-400) 211 x10^3/uL (140-400) Neutrophils (%) (Auto) 93 % (31-73) 93 % (31-73) Lymphocytes (%) (Auto) 5 % (24-48) 5 % (24-48) Monocytes (%) (Auto) 2 % (0-9) 3 % (0-9) Eosinophils (%) (Auto) 0 % (0-3) 0 % (0-3) Basophils (%) (Auto) 0 % (0-3) 0 % (0-3) Neutrophils # (Auto) 11.7 x10^3uL (1.8-7.7) 14.2 x10^3uL (1.8-7.7) Lymphocytes # (Auto) 0.6 x10^3/uL (1.0-4.8) 0.7 x10^3/uL (1.0-4.8) Monocytes # (Auto) 0.3 x10^3/uL (0.0-1.1) 0.4 x10^3/uL (0.0-1.1) Eosinophils # (Auto) 0.0 x10^3/uL (0.0-0.7) 0.0 x10^3/uL (0.0-0.7) Basophils # (Auto) 0.0 x10^3/uL (0.0-0.2) 0.0 x10^3/uL (0.0-0.2) Sodium Level 144 mmol/L (136-145) 141 mmol/L (136-145) Potassium Level 4.4 mmol/L (3.5-5.1) 4.2 mmol/L (3.5-5.1) Chloride Level 112 mmol/L (98-107) 108 mmol/L (98-107) Carbon Dioxide Level 23 mmol/L (21-32) 27 mmol/L (21-32) Anion Gap 9 (6-14) 6 (6-14) Blood Urea Nitrogen 8 mg/dL (7-20) 15 mg/dL (7-20) Creatinine 0.7 mg/dL (0.6-1.0) 0.7 mg/dL (0.6-1.0) Estimated GFR (Cockcroft-Gault) 120.6 120.6 Glucose Level 110 mg/dL (70-99) 111 mg/dL (70-99) Calcium Level 8.5 mg/dL (8.5-10.1) 8.7 mg/dL (8.5-10.1) O2 Saturation 99 % (92-99) 99 % (92-99) Arterial Blood pH 7.37 (7.35-7.45) 7.43 (7.35-7.45) Arterial Blood pCO2 at Patient Temp 39 mmHg (35-46) 36 mmHg (35-46) Arterial Blood pO2 at Patient Temp 150 mmHg (85-108) 197 mmHg (85-108) Arterial Blood HCO3 22 mmol/L (21-28) 24 mmol/L (21-28) Arterial Blood Base Excess -3 mmol/L (-3-3) -1 mmol/L (-3-3) FiO2 40 40 Laboratory Tests Test 04/27/18 11:25 04/28/18 04:30 O2 Saturation 99 % (92-99) Arterial Blood pH 7.43 (7.35-7.45) Arterial Blood pCO2 at Patient Temp 36 mmHg (35-46) Arterial Blood pO2 at Patient Temp 197 mmHg (85-108) Arterial Blood HCO3 24 mmol/L (21-28) Arterial Blood Base Excess -1 mmol/L (-3-3) FiO2 40 White Blood Count 15.4 x10^3/uL (4.0-11.0) Red Blood Count 2.97 x10^6/uL (3.50-5.40) Hemoglobin 10.0 g/dL (12.0-15.5) Hematocrit 29.7 % (36.0-47.0) Mean Corpuscular Volume 100 fL (79-100) Mean Corpuscular Hemoglobin 34 pg (25-35) Mean Corpuscular Hemoglobin Concent 34 g/dL (31-37) Red Cell Distribution Width 14.2 % (11.5-14.5) Platelet Count 211 x10^3/uL (140-400) Neutrophils (%) (Auto) 93 % (31-73) Lymphocytes (%) (Auto) 5 % (24-48) Monocytes (%) (Auto) 3 % (0-9) Eosinophils (%) (Auto) 0 % (0-3) Basophils (%) (Auto) 0 % (0-3) Neutrophils # (Auto) 14.2 x10^3uL (1.8-7.7) Lymphocytes # (Auto) 0.7 x10^3/uL (1.0-4.8) Monocytes # (Auto) 0.4 x10^3/uL (0.0-1.1) Eosinophils # (Auto) 0.0 x10^3/uL (0.0-0.7) Basophils # (Auto) 0.0 x10^3/uL (0.0-0.2) Sodium Level 141 mmol/L (136-145) Potassium Level 4.2 mmol/L (3.5-5.1) Chloride Level 108 mmol/L (98-107) Carbon Dioxide Level 27 mmol/L (21-32) Anion Gap 6 (6-14) Blood Urea Nitrogen 15 mg/dL (7-20) Creatinine 0.7 mg/dL (0.6-1.0) Estimated GFR (Cockcroft-Gault) 120.6 Glucose Level 111 mg/dL (70-99) Calcium Level 8.7 mg/dL (8.5-10.1) Medications Active Scripts Medications Dose Route/Sig Max Daily Dose Days Date Category Ventolin Hfa Inhaler (Albuterol Sulfate) 18 Gm Hfa.aer.ad 2 Puff INH Q4HRS PRN 04/26/18 Reported Comments CXR 04/27 clear Impression . 1. Status asthmaticus.extubated 04/27 2. Acute respiratory failure secondary to above. 3. Positive drug screen for cannabinoids. 4. Possible urinary tract infection. Plan . 1. Doing well on RA 2. steroids taper 3. Antibiotic for urinary tract infection per PCP 4. TRANSFER TO FLOOR 5. d/w patient regarding need for home steroid inhaler. she cannot afford it no further rec. will s/o. can go home in am JENNIFER LEVINE MD Apr 28, 2018 10:32
[2018-04-28 11:15] VITALS: BP 126/85
[2018-04-28 15:00] VITALS: BP 130/84
--- NOTE | 2018-04-28 17:05 | PDOC ---
PROGRESS NOTES Chief Complaint Chief Complaint Status asthmaticus. Acute respiratory failure secondary to above. Positive drug screen for cannabinoids. Possible urinary tract infection. History of Present Illness History of Present Illness Doing well on RA C/w steroids taper Antibiotic for urinary tract infection per PCP Vitals Vitals Vital Signs Date Time Temp Pulse Resp B/P (MAP) Pulse Ox O2 Delivery O2 Flow Rate FiO2 04/28/18 16:25 96 Room Air 04/28/18 11:15 98.3 70 18 126/85 (99) 98.3 04/27/18 14:00 2.0 Physical Exam General: Alert, Cooperative Heart: Regular rate, Normal S1 Lungs: Clear Abdomen: Normal bowel sounds, Soft Extremities: No clubbing, No cyanosis Skin: No rashes, No breakdown Labs LABS Laboratory Tests Test 04/28/18 04:30 White Blood Count 15.4 x10^3/uL (4.0-11.0) Red Blood Count 2.97 x10^6/uL (3.50-5.40) Hemoglobin 10.0 g/dL (12.0-15.5) Hematocrit 29.7 % (36.0-47.0) Mean Corpuscular Volume 100 fL (79-100) Mean Corpuscular Hemoglobin 34 pg (25-35) Mean Corpuscular Hemoglobin Concent 34 g/dL (31-37) Red Cell Distribution Width 14.2 % (11.5-14.5) Platelet Count 211 x10^3/uL (140-400) Neutrophils (%) (Auto) 93 % (31-73) Lymphocytes (%) (Auto) 5 % (24-48) Monocytes (%) (Auto) 3 % (0-9) Eosinophils (%) (Auto) 0 % (0-3) Basophils (%) (Auto) 0 % (0-3) Neutrophils # (Auto) 14.2 x10^3uL (1.8-7.7) Lymphocytes # (Auto) 0.7 x10^3/uL (1.0-4.8) Monocytes # (Auto) 0.4 x10^3/uL (0.0-1.1) Eosinophils # (Auto) 0.0 x10^3/uL (0.0-0.7) Basophils # (Auto) 0.0 x10^3/uL (0.0-0.2) Sodium Level 141 mmol/L (136-145) Potassium Level 4.2 mmol/L (3.5-5.1) Chloride Level 108 mmol/L (98-107) Carbon Dioxide Level 27 mmol/L (21-32) Anion Gap 6 (6-14) Blood Urea Nitrogen 15 mg/dL (7-20) Creatinine 0.7 mg/dL (0.6-1.0) Estimated GFR (Cockcroft-Gault) 120.6 Glucose Level 111 mg/dL (70-99) Calcium Level 8.7 mg/dL (8.5-10.1) Assessment and Plan Assessmemt and Plan Problems Medical Problems: (1) Acute hypoxemic respiratory failure Status: Acute Comment Review of Relevant I have reviewed the following items lynette (where applicable) has been applied. Labs Laboratory Tests Test 04/27/18 04:15 04/27/18 07:30 04/27/18 11:25 04/28/18 04:30 White Blood Count 12.6 x10^3/uL (4.0-11.0) 15.4 x10^3/uL (4.0-11.0) Red Blood Count 3.17 x10^6/uL (3.50-5.40) 2.97 x10^6/uL (3.50-5.40) Hemoglobin 10.6 g/dL (12.0-15.5) 10.0 g/dL (12.0-15.5) Hematocrit 31.5 % (36.0-47.0) 29.7 % (36.0-47.0) Mean Corpuscular Volume 99 fL (79-100) 100 fL (79-100) Mean Corpuscular Hemoglobin 34 pg (25-35) 34 pg (25-35) Mean Corpuscular Hemoglobin Concent 34 g/dL (31-37) 34 g/dL (31-37) Red Cell Distribution Width 13.9 % (11.5-14.5) 14.2 % (11.5-14.5) Platelet Count 212 x10^3/uL (140-400) 211 x10^3/uL (140-400) Neutrophils (%) (Auto) 93 % (31-73) 93 % (31-73) Lymphocytes (%) (Auto) 5 % (24-48) 5 % (24-48) Monocytes (%) (Auto) 2 % (0-9) 3 % (0-9) Eosinophils (%) (Auto) 0 % (0-3) 0 % (0-3) Basophils (%) (Auto) 0 % (0-3) 0 % (0-3) Neutrophils # (Auto) 11.7 x10^3uL (1.8-7.7) 14.2 x10^3uL (1.8-7.7) Lymphocytes # (Auto) 0.6 x10^3/uL (1.0-4.8) 0.7 x10^3/uL (1.0-4.8) Monocytes # (Auto) 0.3 x10^3/uL (0.0-1.1) 0.4 x10^3/uL (0.0-1.1) Eosinophils # (Auto) 0.0 x10^3/uL (0.0-0.7) 0.0 x10^3/uL (0.0-0.7) Basophils # (Auto) 0.0 x10^3/uL (0.0-0.2) 0.0 x10^3/uL (0.0-0.2) Sodium Level 144 mmol/L (136-145) 141 mmol/L (136-145) Potassium Level 4.4 mmol/L (3.5-5.1) 4.2 mmol/L (3.5-5.1) Chloride Level 112 mmol/L (98-107) 108 mmol/L (98-107) Carbon Dioxide Level 23 mmol/L (21-32) 27 mmol/L (21-32) Anion Gap 9 (6-14) 6 (6-14) Blood Urea Nitrogen 8 mg/dL (7-20) 15 mg/dL (7-20) Creatinine 0.7 mg/dL (0.6-1.0) 0.7 mg/dL (0.6-1.0) Estimated GFR (Cockcroft-Gault) 120.6 120.6 Glucose Level 110 mg/dL (70-99) 111 mg/dL (70-99) Calcium Level 8.5 mg/dL (8.5-10.1) 8.7 mg/dL (8.5-10.1) O2 Saturation 99 % (92-99) 99 % (92-99) Arterial Blood pH 7.37 (7.35-7.45) 7.43 (7.35-7.45) Arterial Blood pCO2 at Patient Temp 39 mmHg (35-46) 36 mmHg (35-46) Arterial Blood pO2 at Patient Temp 150 mmHg (85-108) 197 mmHg (85-108) Arterial Blood HCO3 22 mmol/L (21-28) 24 mmol/L (21-28) Arterial Blood Base Excess -3 mmol/L (-3-3) -1 mmol/L (-3-3) FiO2 40 40 Laboratory Tests Test 04/28/18 04:30 White Blood Count 15.4 x10^3/uL (4.0-11.0) Red Blood Count 2.97 x10^6/uL (3.50-5.40) Hemoglobin 10.0 g/dL (12.0-15.5) Hematocrit 29.7 % (36.0-47.0) Mean Corpuscular Volume 100 fL (79-100) Mean Corpuscular Hemoglobin 34 pg (25-35) Mean Corpuscular Hemoglobin Concent 34 g/dL (31-37) Red Cell Distribution Width 14.2 % (11.5-14.5) Platelet Count 211 x10^3/uL (140-400) Neutrophils (%) (Auto) 93 % (31-73) Lymphocytes (%) (Auto) 5 % (24-48) Monocytes (%) (Auto) 3 % (0-9) Eosinophils (%) (Auto) 0 % (0-3) Basophils (%) (Auto) 0 % (0-3) Neutrophils # (Auto) 14.2 x10^3uL (1.8-7.7) Lymphocytes # (Auto) 0.7 x10^3/uL (1.0-4.8) Monocytes # (Auto) 0.4 x10^3/uL (0.0-1.1) Eosinophils # (Auto) 0.0 x10^3/uL (0.0-0.7) Basophils # (Auto) 0.0 x10^3/uL (0.0-0.2) Sodium Level 141 mmol/L (136-145) Potassium Level 4.2 mmol/L (3.5-5.1) Chloride Level 108 mmol/L (98-107) Carbon Dioxide Level 27 mmol/L (21-32) Anion Gap 6 (6-14) Blood Urea Nitrogen 15 mg/dL (7-20) Creatinine 0.7 mg/dL (0.6-1.0) Estimated GFR (Cockcroft-Gault) 120.6 Glucose Level 111 mg/dL (70-99) Calcium Level 8.7 mg/dL (8.5-10.1) Microbiology 04/26/18 Blood Culture - Preliminary, Resulted NO GROWTH AFTER 2 DAYS Medications Current Medications Sodium Chloride 1,000 ml @ 100 mls/hr Q10H IV Last administered on 04/26/18at 00:03; Start 04/25/18 at 23:28; Stop 04/26/18 at 09:27; Status DC Albuterol Sulfate (Ventolin Neb Soln) 2.5 mg STK-MED ONCE .ROUTE ; Start at 23:47; Stop 04/25/18 at 23:48; Status DC Albuterol Sulfate (Ventolin Neb Soln) 2.5 mg STK-MED ONCE .ROUTE ; Start at 23:48; Stop 04/25/18 at 23:49; Status DC Morphine Sulfate (Morphine Sulfate) 4 mg STK-MED ONCE .ROUTE ; Start 04/25/18 at 23:56; Stop 04/25/18 at 23:57; Status DC Propofol 50 ml @ As Directed STK-MED ONCE IV ; Start 04/25/18 at 23:57; Stop at 23:58; Status DC Morphine Sulfate (Morphine Sulfate) 4 mg 1X ONCE IV Last administered on at 23:58; Start 04/26/18 at 00:00; Stop 04/26/18 at 00:09; Status DC Propofol 100 ml @ 0 mls/hr CONT PRN IV SEE PROTOCOL Last administered on at 08:23; Start 04/26/18 at 00:15; Stop 04/28/18 at 11:23; Status DC Chlorhexidine Gluconate (Peridex) 15 ml BID MM Last administered on 04/26/18at 20:35; Start 04/26/18 at 09:00; Stop 04/27/18 at 14:35; Status DC Vecuronium [place] (Norcuron Bolus) 10 mg 1X ONCE IV Last administered on 04/25at 23:36; Start 04/26/18 at 01:00; Stop 04/26/18 at 01:01; Status DC Etomidate (Amidate) 20 mg 1X ONCE IV Last administered on 04/25/18at 23:36; Start 04/26/18 at 01:00; Stop 04/26/18 at 01:01; Status DC Magnesium Sulfate 50 ml @ 25 mls/hr 1X ONCE IV Last administered on 04/26/18at 01:40; Start 04/26/18 at 01:30; Stop 04/26/18 at 03:29; Status DC Methylprednisolone Sodium Succinate (SOLU-Medrol 125MG VIAL) 125 mg 1X ONCE IV Last administered on 04/26/18at 01:40; Start 04/26/18 at 01:30; Stop 04/26/18 at 01:31; Status DC Vancomycin HCl 250 ml @ 250 mls/hr 1X ONCE IV Last administered on 04/26/18at 06:28; Start 04/26/18 at 02:00; Stop 04/26/18 at 02:59; Status DC Piperacillin Sod/ Tazobactam Sod 3.375 gm/Sodium Chloride 50 ml @ 100 mls/hr 1X ONCE IV Last administered on 04/26/18at 05:49; Start 04/26/18 at 02:30; Stop 04/26/18 at 02:59; Status DC Sodium Chloride 1,000 ml @ 1,000 mls/hr 1X ONCE IV ; Start 04/26/18 at 02:00; Stop 04/26/18 at 02:59; Status DC Midazolam HCl (Versed) 5 mg 1X ONCE IV Last administered on 04/26/18at 01:58; Start 04/26/18 at 02:15; Stop 04/26/18 at 02:16; Status DC Sodium Chloride 1,000 ml @ 125 mls/hr Q8H IV Last administered on 04/26/18at 16 :54; Start 04/26/18 at 02:00; Stop 04/27/18 at 01:59; Status DC Albuterol/ Ipratropium (Duoneb) 3 ml RTQID NEB Last administered on 04/26/18at 08:15; Start 04/26/18 at 08:00; Stop 04/26/18 at 10:41; Status DC Methylprednisolone Sodium Succinate (SOLU-Medrol 125MG VIAL) 125 mg Q6HRS IV Last administered on 04/28/18at 06:05; Start 04/26/18 at 06:00; Stop 04/28/18 at 10:33; Status DC Propofol 50 ml @ As Directed STK-MED ONCE IV ; Start 04/26/18 at 02:30; Stop at 02:31; Status DC Sodium Chloride 1,000 ml @ 1,000 mls/hr 1X ONCE IV Last administered on at 02:43; Start 04/26/18 at 02:45; Stop 04/26/18 at 03:44; Status DC Etomidate (Amidate) 20 mg STK-MED ONCE IV ; Start 04/26/18 at 06:59; Stop at 07:00; Status DC Vecuronium [place] (Norcuron Bolus) 10 mg STK-MED ONCE IV ; Start 04/26/18 at 06 :59; Stop 04/26/18 at 07:00; Status DC Midazolam HCl (Versed) 5 mg STK-MED ONCE .ROUTE ; Start 04/26/18 at 07:00; Stop 04/26/18 at 07:01; Status DC Fentanyl Citrate (Fentanyl 2ml Vial) 25 mcg PRN Q1HR PRN IV SEE COMMENTS Last administered on 04/27/18at 09:25; Start 04/26/18 at 10:30 Chlorhexidine Gluconate (Peridex) 15 ml BID MM ; Start 04/26/18 at 11:00; Stop 04/26/18 at 11:00; Status DC Famotidine (Pepcid Vial) 20 mg BID IVP Last administered on 04/27/18at 08:22; Start 04/26/18 at 11:00; Stop 04/27/18 at 14:35; Status DC Enoxaparin Sodium (Lovenox 40mg Syringe) 40 mg DAILY SQ Last administered on at 08:49; Start 04/26/18 at 11:00 Levofloxacin/ Dextrose 100 ml @ 100 mls/hr Q24H IV Last administered on at 16:53; Start 04/26/18 at 11:00; Stop 04/28/18 at 11:24; Status DC Albuterol Sulfate (Ventolin Neb Soln) 2.5 mg PRN Q2HR PRN NEB [id number]; Start 04/26/18 at 10:30 Albuterol/ Ipratropium (Duoneb) 3 ml RTQID NEB Last administered on 04/28/18at 16:22; Start 04/26/18 at 12:00 Acetaminophen (Tylenol) 650 mg PRN Q6HRS PRN PEG MILD PAIN / TEMP Last administered on 04/26/18at 16:53; Start 04/26/18 at 16:45 Sodium Chloride 1,000 ml @ 1,000 mls/hr 1X ONCE IV Last administered on at 21:17; Start 04/26/18 at 21:30; Stop 04/26/18 at 22:29; Status DC Sodium Chloride 1,000 ml @ 125 mls/hr Q8H IV Last administered on 04/27/18at 06 :20; Start 04/27/18 at 00:15; Stop 04/28/18 at 11:00; Status DC Lactobacillus Rhamnosus (Culturelle) 1 cap BID PO ; Start 04/28/18 at 21:00 Prednisone (Prednisone) 40 mg DAILY PO ; Start 04/29/18 at 09:00 Levofloxacin (Levaquin) 500 mg DAILY06 PO Last administered on 04/28/18at 12:00 ; Start 04/28/18 at 12:00 Active Scripts Active Reported Ventolin Hfa Inhaler (Albuterol Sulfate) 18 Gm Hfa.aer.ad 2 Puff INH Q4HRS PRN Vitals/I & O Vital Sign - Last 24 Hours 04/27/18 04/27/18 04/27/18 04/27/18 19:40 20:09 20:14 22:56 Temp 98.6 98.6 Pulse 125 92 Resp 28 26 B/P (MAP) 141/92 (108) 168/97 (120) Pulse Ox 98 95 98 O2 Delivery Room Air Room Air Room Air Room Air 04/28/18 04/28/18 04/28/18 04/28/18 03:57 08:00 09:14 11:15 Temp 98.6 98.3 98.6 98.3 Pulse 86 70 Resp 24 18 B/P (MAP) 129/87 (101) 126/85 (99) Pulse Ox 95 97 95 O2 Delivery Room Air Room Air Room Air Room Air 04/28/18 04/28/18 13:21 16:25 Pulse Ox 96 96 O2 Delivery Room Air Room Air Intake and Output 04/27/18 04/27/18 04/28/18 15:00 23:00 07:00 Intake Total 596.27 ml 1440 ml Output Total 660 ml 30 ml 300 ml Balance -63.73 ml 1410 ml -300 ml JOSE ARMANDO CRONIN MD Apr 28, 2018 17:05
[2018-04-28 19:00] VITALS: BP 134/89
[2018-04-28] MEDS: LACTOBACILLUS RHAMNOSUS GG 1 CAPSULE. PO SCH (20:30)
[2018-04-28 23:00] VITALS: BP 139/94
[2018-04-29 03:00] VITALS: BP 136/94
[2018-04-29 04:01] LABS: BASO % 0 % (0-3); EOS % 0 % (0-3); HEMATOCRIT 27.9 % (36.0-47.0); HEMOGLOBIN 9.7 g/dL (12.0-15.5); LYMPH # 2.4 x10^3/uL (1.0-4.8); LYMPH % 20 % (24-48); MEAN CORPUSCULAR HEMOGLOBIN 35 pg (25-35); MEAN CORPUSCULAR HGB CONC 35 g/dL (31-37); MEAN CORPUSCULAR VOLUME 99 fL (79-100); MONO # 0.7 x10^3/uL (0.0-1.1); MONO % 6 % (0-9); NEUT # 9.1 x10^3uL (1.8-7.7); NEUT % 74 % (31-73); PLATELET COUNT 183 x10^3/uL (140-400); RED BLOOD COUNT 2.82 x10^6/uL (3.50-5.40); WHITE BLOOD COUNT 12.2 x10^3/uL (4.0-11.0)
[2018-04-29 04:14] LABS: CALCIUM 8.2 mg/dL (8.5-10.1); CREATININE 0.8 mg/dL (0.6-1.0); GFR 103.3; POTASSIUM 3.5 mmol/L (3.5-5.1)
[2018-04-29 07:00] VITALS: BP 147/87
[2018-04-29] MEDS: LACTOBACILLUS RHAMNOSUS GG 1 CAPSULE. PO SCH (08:19)
[2018-04-29] MEDS: ENOXAPARIN 40 MG/0.4 ML SYRINGE. SQ SCH (08:20)
--- NOTE | 2018-04-29 08:46 | RAD ---
AP chest x-ray COMPARISON: Chest x-ray April 28, 2018. HISTORY: Respiratory failure. FINDINGS: Heart size normal. Mediastinal silhouette is normal. No pneumothorax or pleural effusions. There is a mild focal density of the left lateral lung base new from the prior study most likely representing atelectasis. Right lung clear. Bones unremarkable. IMPRESSION: Stable small focal density of the left lateral lung base likely representing atelectasis or early infiltrate. Electronically signed by: Eben Burks MD (04/29/2018 8:42 AM) [facility]
[2018-04-29] MEDS ORDERED: predniSONE 10 MG TABLET PO SCH (09:00)
[2018-04-29] MEDS: IPRATRPIUM/ALBUTEROL 0.5/2.5MG 3 ML NEBU. NEB SCH ×2 (09:25→12:52)
--- NOTE | 2018-04-29 10:57 | PDOC ---
PROGRESS NOTES Chief Complaint Chief Complaint Status asthmaticus. Acute respiratory failure secondary to above. Positive drug screen for cannabinoids. Possible urinary tract infection. History of Present Illness History of Present Illness Doing well on RA, smiling steroids taper Antibiotic for urinary tract infection Vitals Vitals Vital Signs Date Time Temp Pulse Resp B/P (MAP) Pulse Ox O2 Delivery O2 Flow Rate FiO2 04/29/18 09:26 97 Room Air 04/29/18 07:00 97.9 80 18 147/87 (107) 97.9 Physical Exam General: Alert, Oriented X3, Cooperative, No acute distress Heart: Regular rate, Normal S1 Lungs: Clear Abdomen: Normal bowel sounds, Soft Extremities: No clubbing, No cyanosis Skin: No rashes, No breakdown Labs LABS Laboratory Tests Test 04/29/18 03:10 White Blood Count 12.2 x10^3/uL (4.0-11.0) Red Blood Count 2.82 x10^6/uL (3.50-5.40) Hemoglobin 9.7 g/dL (12.0-15.5) Hematocrit 27.9 % (36.0-47.0) Mean Corpuscular Volume 99 fL (79-100) Mean Corpuscular Hemoglobin 35 pg (25-35) Mean Corpuscular Hemoglobin Concent 35 g/dL (31-37) Red Cell Distribution Width 14.0 % (11.5-14.5) Platelet Count 183 x10^3/uL (140-400) Neutrophils (%) (Auto) 74 % (31-73) Lymphocytes (%) (Auto) 20 % (24-48) Monocytes (%) (Auto) 6 % (0-9) Eosinophils (%) (Auto) 0 % (0-3) Basophils (%) (Auto) 0 % (0-3) Neutrophils # (Auto) 9.1 x10^3uL (1.8-7.7) Lymphocytes # (Auto) 2.4 x10^3/uL (1.0-4.8) Monocytes # (Auto) 0.7 x10^3/uL (0.0-1.1) Eosinophils # (Auto) 0.0 x10^3/uL (0.0-0.7) Basophils # (Auto) 0.0 x10^3/uL (0.0-0.2) Sodium Level 141 mmol/L (136-145) Potassium Level 3.5 mmol/L (3.5-5.1) Chloride Level 107 mmol/L (98-107) Carbon Dioxide Level 30 mmol/L (21-32) Anion Gap 4 (6-14) Blood Urea Nitrogen 15 mg/dL (7-20) Creatinine 0.8 mg/dL (0.6-1.0) Estimated GFR (Cockcroft-Gault) 103.3 Glucose Level 84 mg/dL (70-99) Calcium Level 8.2 mg/dL (8.5-10.1) Assessment and Plan Assessmemt and Plan Problems Medical Problems: (1) Acute hypoxemic respiratory failure Status: Acute Comment Review of Relevant I have reviewed the following items lynette (where applicable) has been applied. Labs Laboratory Tests Test 04/27/18 11:25 04/28/18 04:30 04/29/18 03:10 O2 Saturation 99 % (92-99) Arterial Blood pH 7.43 (7.35-7.45) Arterial Blood pCO2 at Patient Temp 36 mmHg (35-46) Arterial Blood pO2 at Patient Temp 197 mmHg (85-108) Arterial Blood HCO3 24 mmol/L (21-28) Arterial Blood Base Excess -1 mmol/L (-3-3) FiO2 40 White Blood Count 15.4 x10^3/uL (4.0-11.0) 12.2 x10^3/uL (4.0-11.0) Red Blood Count 2.97 x10^6/uL (3.50-5.40) 2.82 x10^6/uL (3.50-5.40) Hemoglobin 10.0 g/dL (12.0-15.5) 9.7 g/dL (12.0-15.5) Hematocrit 29.7 % (36.0-47.0) 27.9 % (36.0-47.0) Mean Corpuscular Volume 100 fL (79-100) 99 fL (79-100) Mean Corpuscular Hemoglobin 34 pg (25-35) 35 pg (25-35) Mean Corpuscular Hemoglobin Concent 34 g/dL (31-37) 35 g/dL (31-37) Red Cell Distribution Width 14.2 % (11.5-14.5) 14.0 % (11.5-14.5) Platelet Count 211 x10^3/uL (140-400) 183 x10^3/uL (140-400) Neutrophils (%) (Auto) 93 % (31-73) 74 % (31-73) Lymphocytes (%) (Auto) 5 % (24-48) 20 % (24-48) Monocytes (%) (Auto) 3 % (0-9) 6 % (0-9) Eosinophils (%) (Auto) 0 % (0-3) 0 % (0-3) Basophils (%) (Auto) 0 % (0-3) 0 % (0-3) Neutrophils # (Auto) 14.2 x10^3uL (1.8-7.7) 9.1 x10^3uL (1.8-7.7) Lymphocytes # (Auto) 0.7 x10^3/uL (1.0-4.8) 2.4 x10^3/uL (1.0-4.8) Monocytes # (Auto) 0.4 x10^3/uL (0.0-1.1) 0.7 x10^3/uL (0.0-1.1) Eosinophils # (Auto) 0.0 x10^3/uL (0.0-0.7) 0.0 x10^3/uL (0.0-0.7) Basophils # (Auto) 0.0 x10^3/uL (0.0-0.2) 0.0 x10^3/uL (0.0-0.2) Sodium Level 141 mmol/L (136-145) 141 mmol/L (136-145) Potassium Level 4.2 mmol/L (3.5-5.1) 3.5 mmol/L (3.5-5.1) Chloride Level 108 mmol/L (98-107) 107 mmol/L (98-107) Carbon Dioxide Level 27 mmol/L (21-32) 30 mmol/L (21-32) Anion Gap 6 (6-14) 4 (6-14) Blood Urea Nitrogen 15 mg/dL (7-20) 15 mg/dL (7-20) Creatinine 0.7 mg/dL (0.6-1.0) 0.8 mg/dL (0.6-1.0) Estimated GFR (Cockcroft-Gault) 120.6 103.3 Glucose Level 111 mg/dL (70-99) 84 mg/dL (70-99) Calcium Level 8.7 mg/dL (8.5-10.1) 8.2 mg/dL (8.5-10.1) Laboratory Tests Test 04/29/18 03:10 White Blood Count 12.2 x10^3/uL (4.0-11.0) Red Blood Count 2.82 x10^6/uL (3.50-5.40) Hemoglobin 9.7 g/dL (12.0-15.5) Hematocrit 27.9 % (36.0-47.0) Mean Corpuscular Volume 99 fL (79-100) Mean Corpuscular Hemoglobin 35 pg (25-35) Mean Corpuscular Hemoglobin Concent 35 g/dL (31-37) Red Cell Distribution Width 14.0 % (11.5-14.5) Platelet Count 183 x10^3/uL (140-400) Neutrophils (%) (Auto) 74 % (31-73) Lymphocytes (%) (Auto) 20 % (24-48) Monocytes (%) (Auto) 6 % (0-9) Eosinophils (%) (Auto) 0 % (0-3) Basophils (%) (Auto) 0 % (0-3) Neutrophils # (Auto) 9.1 x10^3uL (1.8-7.7) Lymphocytes # (Auto) 2.4 x10^3/uL (1.0-4.8) Monocytes # (Auto) 0.7 x10^3/uL (0.0-1.1) Eosinophils # (Auto) 0.0 x10^3/uL (0.0-0.7) Basophils # (Auto) 0.0 x10^3/uL (0.0-0.2) Sodium Level 141 mmol/L (136-145) Potassium Level 3.5 mmol/L (3.5-5.1) Chloride Level 107 mmol/L (98-107) Carbon Dioxide Level 30 mmol/L (21-32) Anion Gap 4 (6-14) Blood Urea Nitrogen 15 mg/dL (7-20) Creatinine 0.8 mg/dL (0.6-1.0) Estimated GFR (Cockcroft-Gault) 103.3 Glucose Level 84 mg/dL (70-99) Calcium Level 8.2 mg/dL (8.5-10.1) Microbiology 04/26/18 Blood Culture - Preliminary, Resulted NO GROWTH AFTER 3 DAYS Medications Current Medications Sodium Chloride 1,000 ml @ 100 mls/hr Q10H IV Last administered on 04/26/18at 00:03; Start 04/25/18 at 23:28; Stop 04/26/18 at 09:27; Status DC Albuterol Sulfate (Ventolin Neb Soln) 2.5 mg STK-MED ONCE .ROUTE ; Start at 23:47; Stop 04/25/18 at 23:48; Status DC Albuterol Sulfate (Ventolin Neb Soln) 2.5 mg STK-MED ONCE .ROUTE ; Start at 23:48; Stop 04/25/18 at 23:49; Status DC Morphine Sulfate (Morphine Sulfate) 4 mg STK-MED ONCE .ROUTE ; Start 04/25/18 at 23:56; Stop 04/25/18 at 23:57; Status DC Propofol 50 ml @ As Directed STK-MED ONCE IV ; Start 04/25/18 at 23:57; Stop at 23:58; Status DC Morphine Sulfate (Morphine Sulfate) 4 mg 1X ONCE IV Last administered on at 23:58; Start 04/26/18 at 00:00; Stop 04/26/18 at 00:09; Status DC Propofol 100 ml @ 0 mls/hr CONT PRN IV SEE PROTOCOL Last administered on at 08:23; Start 04/26/18 at 00:15; Stop 04/28/18 at 11:23; Status DC Chlorhexidine Gluconate (Peridex) 15 ml BID MM Last administered on 04/26/18at 20:35; Start 04/26/18 at 09:00; Stop 04/27/18 at 14:35; Status DC Vecuronium [place] (Norcuron Bolus) 10 mg 1X ONCE IV Last administered on 04/25at 23:36; Start 04/26/18 at 01:00; Stop 04/26/18 at 01:01; Status DC Etomidate (Amidate) 20 mg 1X ONCE IV Last administered on 04/25/18at 23:36; Start 04/26/18 at 01:00; Stop 04/26/18 at 01:01; Status DC Magnesium Sulfate 50 ml @ 25 mls/hr 1X ONCE IV Last administered on 04/26/18at 01:40; Start 04/26/18 at 01:30; Stop 04/26/18 at 03:29; Status DC Methylprednisolone Sodium Succinate (SOLU-Medrol 125MG VIAL) 125 mg 1X ONCE IV Last administered on 04/26/18at 01:40; Start 04/26/18 at 01:30; Stop 04/26/18 at 01:31; Status DC Vancomycin HCl 250 ml @ 250 mls/hr 1X ONCE IV Last administered on 04/26/18at 06:28; Start 04/26/18 at 02:00; Stop 04/26/18 at 02:59; Status DC Piperacillin Sod/ Tazobactam Sod 3.375 gm/Sodium Chloride 50 ml @ 100 mls/hr 1X ONCE IV Last administered on 04/26/18at 05:49; Start 04/26/18 at 02:30; Stop 04/26/18 at 02:59; Status DC Sodium Chloride 1,000 ml @ 1,000 mls/hr 1X ONCE IV ; Start 04/26/18 at 02:00; Stop 04/26/18 at 02:59; Status DC Midazolam HCl (Versed) 5 mg 1X ONCE IV Last administered on 04/26/18at 01:58; Start 04/26/18 at 02:15; Stop 04/26/18 at 02:16; Status DC Sodium Chloride 1,000 ml @ 125 mls/hr Q8H IV Last administered on 04/26/18at 16 :54; Start 04/26/18 at 02:00; Stop 04/27/18 at 01:59; Status DC Albuterol/ Ipratropium (Duoneb) 3 ml RTQID NEB Last administered on 04/26/18at 08:15; Start 04/26/18 at 08:00; Stop 04/26/18 at 10:41; Status DC Methylprednisolone Sodium Succinate (SOLU-Medrol 125MG VIAL) 125 mg Q6HRS IV Last administered on 04/28/18at 06:05; Start 04/26/18 at 06:00; Stop 04/28/18 at 10:33; Status DC Propofol 50 ml @ As Directed STK-MED ONCE IV ; Start 04/26/18 at 02:30; Stop at 02:31; Status DC Sodium Chloride 1,000 ml @ 1,000 mls/hr 1X ONCE IV Last administered on at 02:43; Start 04/26/18 at 02:45; Stop 04/26/18 at 03:44; Status DC Etomidate (Amidate) 20 mg STK-MED ONCE IV ; Start 04/26/18 at 06:59; Stop at 07:00; Status DC Vecuronium Tyler (Norcuron Bolus) 10 mg STK-MED ONCE IV ; Start 04/26/18 at 06 :59; Stop 04/26/18 at 07:00; Status DC Midazolam HCl (Versed) 5 mg STK-MED ONCE .ROUTE ; Start 04/26/18 at 07:00; Stop 04/26/18 at 07:01; Status DC Fentanyl Citrate (Fentanyl 2ml Vial) 25 mcg PRN Q1HR PRN IV SEE COMMENTS Last administered on 04/27/18at 09:25; Start 04/26/18 at 10:30 Chlorhexidine Gluconate (Peridex) 15 ml BID MM ; Start 04/26/18 at 11:00; Stop 04/26/18 at 11:00; Status DC Famotidine (Pepcid Vial) 20 mg BID IVP Last administered on 04/27/18at 08:22; Start 04/26/18 at 11:00; Stop 04/27/18 at 14:35; Status DC Enoxaparin Sodium (Lovenox 40mg Syringe) 40 mg DAILY SQ Last administered on at 08:49; Start 04/26/18 at 11:00 Levofloxacin/ Dextrose 100 ml @ 100 mls/hr Q24H IV Last administered on at 16:53; Start 04/26/18 at 11:00; Stop 04/28/18 at 11:24; Status DC Albuterol Sulfate (Ventolin Neb Soln) 2.5 mg PRN Q2HR PRN NEB DYSPNEA; Start 04/26/18 at 10:30 Albuterol/ Ipratropium (Duoneb) 3 ml RTQID NEB Last administered on 04/29/18at 09:25; Start 04/26/18 at 12:00 Acetaminophen (Tylenol) 650 mg PRN Q6HRS PRN PEG MILD PAIN / TEMP Last administered on 04/26/18at 16:53; Start 04/26/18 at 16:45 Sodium Chloride 1,000 ml @ 1,000 mls/hr 1X ONCE IV Last administered on at 21:17; Start 04/26/18 at 21:30; Stop 04/26/18 at 22:29; Status DC Sodium Chloride 1,000 ml @ 125 mls/hr Q8H IV Last administered on 04/27/18at 06 :20; Start 04/27/18 at 00:15; Stop 04/28/18 at 11:00; Status DC Lactobacillus Rhamnosus (Culturelle) 1 cap BID PO Last administered on at 08:19; Start 04/28/18 at 21:00 Prednisone (Prednisone) 40 mg DAILY PO Last administered on 04/29/18at 08:20; Start 04/29/18 at 09:00 Levofloxacin (Levaquin) 500 mg DAILY06 PO Last administered on 04/29/18at 06:15 ; Start 04/28/18 at 12:00 Active Scripts Active Reported Ventolin Hfa Inhaler (Albuterol Sulfate) 18 Gm Hfa.aer.ad 2 Puff INH Q4HRS PRN Vitals/I & O Vital Sign - Last 24 Hours 04/28/18 04/28/18 04/28/18 04/28/18 11:15 13:21 15:00 16:25 Temp 98.3 98.1 98.3 98.1 Pulse 70 77 Resp 18 20 B/P (MAP) 126/85 (99) 130/84 (99) Pulse Ox 95 96 95 96 O2 Delivery Room Air Room Air Room Air Room Air 04/28/18 04/28/18 04/28/18 04/28/18 19:00 19:49 20:00 23:00 Temp 98.0 98.9 98.0 98.9 Pulse 88 87 Resp 20 20 B/P (MAP) 134/89 (104) 139/94 (109) Pulse Ox 95 98 97 O2 Delivery Room Air Room Air Room Air Room Air 1204/29/18 04/29/18 03:00 07:00 09:26 Temp 98.0 97.9 98.0 97.9 Pulse 78 80 Resp 20 18 B/P (MAP) 136/94 (108) 147/87 (107) Pulse Ox 96 96 97 O2 Delivery Room Air Room Air Room Air Intake and Output 04/28/18 04/28/18 04/29/18 15:00 23:00 07:00 Intake Total 180 ml 450 ml Balance 180 ml 450 ml MELISSA MALDONADO MD Apr 29, 2018 10:57
[2018-04-29 11:00] VITALS: BP 145/83
--- NOTE | 2018-04-29 14:15 | PDOC3 ---
Discharge Summary Date of Admission: Apr 26, 2018 Date of Discharge: Apr 29, 2018 Follow-Up: 3-5 days Admitting Diagnosis comment: Chief Complaint Chief Complaint Status asthmaticus. Acute respiratory failure secondary to above. Positive drug screen for cannabinoids. Possible urinary tract infection. home today History of Present Illness History of Present Illness Doing well on RA, smiling steroids taper Antibiotic for urinary tract infection Vitals Vitals Vital Signs Date Time Temp Pulse Resp B/P (MAP) Pulse Ox O2 Delivery O2 Flow Rate FiO2 04/29/18 09:26 97 Room Air 04/29/18 07:00 97.9 80 18 147/87 (107) 97.9 Physical Exam General: Alert, Oriented X3, Cooperative, No acute distress Heart: Regular rate, Normal S1 Lungs: Clear Abdomen: Normal bowel sounds, Soft Extremities: No clubbing, No cyanosis Skin: No rashes, No breakdown FINAL DIAGNOSIS Problems Medical Problems: (1) Acute hypoxemic respiratory failure Status: Acute Brief Hospital Course Ms. Duenas is a 27 old [sex] who presented with [status asthmaticus ] CONDITION AT DISCHARGE: Improved Discharge Medications Current Medications Sodium Chloride 1,000 ml @ 100 mls/hr Q10H IV Last administered on 04/26/18at 00:03; Start 04/25/18 at 23:28; Stop 04/26/18 at 09:27; Status DC Albuterol Sulfate (Ventolin Neb Soln) 2.5 mg STK-MED ONCE .ROUTE ; Start at 23:47; Stop 04/25/18 at 23:48; Status DC Albuterol Sulfate (Ventolin Neb Soln) 2.5 mg STK-MED ONCE .ROUTE ; Start at 23:48; Stop 04/25/18 at 23:49; Status DC Morphine Sulfate (Morphine Sulfate) 4 mg STK-MED ONCE .ROUTE ; Start 04/25/18 at 23:56; Stop 04/25/18 at 23:57; Status DC Propofol 50 ml @ As Directed STK-MED ONCE IV ; Start 04/25/18 at 23:57; Stop at 23:58; Status DC Morphine Sulfate (Morphine Sulfate) 4 mg 1X ONCE IV Last administered on at 23:58; Start 04/26/18 at 00:00; Stop 04/26/18 at 00:09; Status DC Propofol 100 ml @ 0 mls/hr CONT PRN IV SEE PROTOCOL Last administered on at 08:23; Start 04/26/18 at 00:15; Stop 04/28/18 at 11:23; Status DC Chlorhexidine Gluconate (Peridex) 15 ml BID MM Last administered on 04/26/18at 20:35; Start 04/26/18 at 09:00; Stop 04/27/18 at 14:35; Status DC Vecuronium [place] (Norcuron Bolus) 10 mg 1X ONCE IV Last administered on 04/25at 23:36; Start 04/26/18 at 01:00; Stop 04/26/18 at 01:01; Status DC Etomidate (Amidate) 20 mg 1X ONCE IV Last administered on 04/25/18at 23:36; Start 04/26/18 at 01:00; Stop 04/26/18 at 01:01; Status DC Magnesium Sulfate 50 ml @ 25 mls/hr 1X ONCE IV Last administered on 04/26/18at 01:40; Start 04/26/18 at 01:30; Stop 04/26/18 at 03:29; Status DC Methylprednisolone Sodium Succinate (SOLU-Medrol 125MG VIAL) 125 mg 1X ONCE IV Last administered on 04/26/18at 01:40; Start 04/26/18 at 01:30; Stop 04/26/18 at 01:31; Status DC Vancomycin HCl 250 ml @ 250 mls/hr 1X ONCE IV Last administered on 04/26/18at 06:28; Start 04/26/18 at 02:00; Stop 04/26/18 at 02:59; Status DC Piperacillin Sod/ Tazobactam Sod 3.375 gm/Sodium Chloride 50 ml @ 100 mls/hr 1X ONCE IV Last administered on 04/26/18at 05:49; Start 04/26/18 at 02:30; Stop 04/26/18 at 02:59; Status DC Sodium Chloride 1,000 ml @ 1,000 mls/hr 1X ONCE IV ; Start 04/26/18 at 02:00; Stop 04/26/18 at 02:59; Status DC Midazolam HCl (Versed) 5 mg 1X ONCE IV Last administered on 04/26/18at 01:58; Start 04/26/18 at 02:15; Stop 04/26/18 at 02:16; Status DC Sodium Chloride 1,000 ml @ 125 mls/hr Q8H IV Last administered on 04/26/18at 16 :54; Start 04/26/18 at 02:00; Stop 04/27/18 at 01:59; Status DC Albuterol/ Ipratropium (Duoneb) 3 ml RTQID NEB Last administered on 04/26/18at 08:15; Start 04/26/18 at 08:00; Stop 04/26/18 at 10:41; Status DC Methylprednisolone Sodium Succinate (SOLU-Medrol 125MG VIAL) 125 mg Q6HRS IV Last administered on 04/28/18at 06:05; Start 04/26/18 at 06:00; Stop 04/28/18 at 10:33; Status DC Propofol 50 ml @ As Directed STK-MED ONCE IV ; Start 04/26/18 at 02:30; Stop at 02:31; Status DC Sodium Chloride 1,000 ml @ 1,000 mls/hr 1X ONCE IV Last administered on at 02:43; Start 04/26/18 at 02:45; Stop 04/26/18 at 03:44; Status DC Etomidate (Amidate) 20 mg STK-MED ONCE IV ; Start 04/26/18 at 06:59; Stop at 07:00; Status DC Vecuronium [place] (Norcuron Bolus) 10 mg STK-MED ONCE IV ; Start 04/26/18 at 06 :59; Stop 04/26/18 at 07:00; Status DC Midazolam HCl (Versed) 5 mg STK-MED ONCE .ROUTE ; Start 04/26/18 at 07:00; Stop 04/26/18 at 07:01; Status DC Fentanyl Citrate (Fentanyl 2ml Vial) 25 mcg PRN Q1HR PRN IV SEE COMMENTS Last administered on 04/27/18at 09:25; Start 04/26/18 at 10:30 Chlorhexidine Gluconate (Peridex) 15 ml BID MM ; Start 04/26/18 at 11:00; Stop 04/26/18 at 11:00; Status DC Famotidine (Pepcid Vial) 20 mg BID IVP Last administered on 04/27/18at 08:22; Start 04/26/18 at 11:00; Stop 04/27/18 at 14:35; Status DC Enoxaparin Sodium (Lovenox 40mg Syringe) 40 mg DAILY SQ Last administered on at 08:49; Start 04/26/18 at 11:00 Levofloxacin/ Dextrose 100 ml @ 100 mls/hr Q24H IV Last administered on 16:53; Start 04/26/18 at 11:00; Stop 04/28/18 at 11:24; Status DC Albuterol Sulfate (Ventolin Neb Soln) 2.5 mg PRN Q2HR PRN NEB DYSPNEA; Start 04/26/18 at 10:30 Albuterol/ Ipratropium (Duoneb) 3 ml RTQID NEB Last administered on 04/29/18at 12:52; Start 04/26/18 at 12:00 Acetaminophen (Tylenol) 650 mg PRN Q6HRS PRN PEG MILD PAIN / TEMP Last administered on 04/26/18at 16:53; Start 04/26/18 at 16:45 Sodium Chloride 1,000 ml @ 1,000 mls/hr 1X ONCE IV Last administered on at 21:17; Start 04/26/18 at 21:30; Stop 04/26/18 at 22:29; Status DC Sodium Chloride 1,000 ml @ 125 mls/hr Q8H IV Last administered on 04/27/18 06 :20; Start 04/27/18 at 00:15; Stop 04/28/18 at 11:00; Status DC Lactobacillus Rhamnosus (Culturelle) 1 cap BID PO Last administered on at 08:19; Start 04/28/18 at 21:00 Prednisone (Prednisone) 40 mg DAILY PO Last administered on 04/29/18 08:20; Start 04/29/18 at 09:00 Levofloxacin (Levaquin) 500 mg DAILY06 PO Last administered on 04/29/18at 06:15 ; Start 04/28/18 at 12:00 Active Scripts Active Reported Ventolin Hfa Inhaler (Albuterol Sulfate) 18 Gm Hfa.aer.ad 2 Puff INH Q4HRS PRN Vital Signs Vital Signs Date Time Temp Pulse Resp B/P (MAP) Pulse Ox O2 Delivery O2 Flow Rate FiO2 04/29/18 12:53 97 Room Air 04/29/18 08:00 2.0 04/29/18 07:00 97.9 80 18 147/87 (107) 97.9 Labs Laboratory Tests Test 04/28/18 04:30 04/29/18 03:10 White Blood Count 15.4 x10^3/uL (4.0-11.0) 12.2 x10^3/uL (4.0-11.0) Red Blood Count 2.97 x10^6/uL (3.50-5.40) 2.82 x10^6/uL (3.50-5.40) Hemoglobin 10.0 g/dL (12.0-15.5) 9.7 g/dL (12.0-15.5) Hematocrit 29.7 % (36.0-47.0) 27.9 % (36.0-47.0) Mean Corpuscular Volume 100 fL (79-100) 99 fL (79-100) Mean Corpuscular Hemoglobin 34 pg (25-35) 35 pg (25-35) Mean Corpuscular Hemoglobin Concent 34 g/dL (31-37) 35 g/dL (31-37) Red Cell Distribution Width 14.2 % (11.5-14.5) 14.0 % (11.5-14.5) Platelet Count 211 x10^3/uL (140-400) 183 x10^3/uL (140-400) Neutrophils (%) (Auto) 93 % (31-73) 74 % (31-73) Lymphocytes (%) (Auto) 5 % (24-48) 20 % (24-48) Monocytes (%) (Auto) 3 % (0-9) 6 % (0-9) Eosinophils (%) (Auto) 0 % (0-3) 0 % (0-3) Basophils (%) (Auto) 0 % (0-3) 0 % (0-3) Neutrophils # (Auto) 14.2 x10^3uL (1.8-7.7) 9.1 x10^3uL (1.8-7.7) Lymphocytes # (Auto) 0.7 x10^3/uL (1.0-4.8) 2.4 x10^3/uL (1.0-4.8) Monocytes # (Auto) 0.4 x10^3/uL (0.0-1.1) 0.7 x10^3/uL (0.0-1.1) Eosinophils # (Auto) 0.0 x10^3/uL (0.0-0.7) 0.0 x10^3/uL (0.0-0.7) Basophils # (Auto) 0.0 x10^3/uL (0.0-0.2) 0.0 x10^3/uL (0.0-0.2) Sodium Level 141 mmol/L (136-145) 141 mmol/L (136-145) Potassium Level 4.2 mmol/L (3.5-5.1) 3.5 mmol/L (3.5-5.1) Chloride Level 108 mmol/L (98-107) 107 mmol/L (98-107) Carbon Dioxide Level 27 mmol/L (21-32) 30 mmol/L (21-32) Anion Gap 6 (6-14) 4 (6-14) Blood Urea Nitrogen 15 mg/dL (7-20) 15 mg/dL (7-20) Creatinine 0.7 mg/dL (0.6-1.0) 0.8 mg/dL (0.6-1.0) Estimated GFR (Cockcroft-Gault) 120.6 103.3 Glucose Level 111 mg/dL (70-99) 84 mg/dL (70-99) Calcium Level 8.7 mg/dL (8.5-10.1) 8.2 mg/dL (8.5-10.1) Laboratory Tests Test 04/29/18 03:10 White Blood Count 12.2 x10^3/uL (4.0-11.0) Red Blood Count 2.82 x10^6/uL (3.50-5.40) Hemoglobin 9.7 g/dL (12.0-15.5) Hematocrit 27.9 % (36.0-47.0) Mean Corpuscular Volume 99 fL (79-100) Mean Corpuscular Hemoglobin 35 pg (25-35) Mean Corpuscular Hemoglobin Concent 35 g/dL (31-37) Red Cell Distribution Width 14.0 % (11.5-14.5) Platelet Count 183 x10^3/uL (140-400) Neutrophils (%) (Auto) 74 % (31-73) Lymphocytes (%) (Auto) 20 % (24-48) Monocytes (%) (Auto) 6 % (0-9) Eosinophils (%) (Auto) 0 % (0-3) Basophils (%) (Auto) 0 % (0-3) Neutrophils # (Auto) 9.1 x10^3uL (1.8-7.7) Lymphocytes # (Auto) 2.4 x10^3/uL (1.0-4.8) Monocytes # (Auto) 0.7 x10^3/uL (0.0-1.1) Eosinophils # (Auto) 0.0 x10^3/uL (0.0-0.7) Basophils # (Auto) 0.0 x10^3/uL (0.0-0.2) Sodium Level 141 mmol/L (136-145) Potassium Level 3.5 mmol/L (3.5-5.1) Chloride Level 107 mmol/L (98-107) Carbon Dioxide Level 30 mmol/L (21-32) Anion Gap 4 (6-14) Blood Urea Nitrogen 15 mg/dL (7-20) Creatinine 0.8 mg/dL (0.6-1.0) Estimated GFR (Cockcroft-Gault) 103.3 Glucose Level 84 mg/dL (70-99) Calcium Level 8.2 mg/dL (8.5-10.1) Allergies Allergies Coded Allergies Type Severity Reaction Last Updated Verified No Known Drug Allergies 04/26/18 No Disposition/Orders: D/C to Home Patient Instructions d/c planning 33 min MELISSA MALDONADO MD Apr 29, 2018 14:15
--- NOTE | 2018-04-29 14:17 | DISCH ---
DISCHARGE INSTRUCTIONS Condition on Discharge Condition on Discharge: Stable Activity After Discharge Activity Instructions for Disc: Resume previous activity, Avoid exertion Lifting Instructions after Dis: No heavy lifting, No pulling or pushing Exercise Instruction after Dis: Walk 10 min, 3 x per day, Progress as tolerated Driving Instructions after Dis: Do not drive Contacting the DR. after DC Call your doctor for: If your condition worsens Follow-Up Follow up with: pcp in 2-3 days Treatment/Equipment after DC Adaptive Equipment Issued: None Warfarin Follow-Up Warfarin Follow UP: avoid smoke and smoking MELISSA MALDONADO MD Apr 29, 2018 14:17
[2018-04-29] MEDS ORDERED: PRED-220 PO (14:20)
[2018-04-29] MEDS ORDERED: LEVO500T59 PO (14:20)
[2018-04-29] MEDS ORDERED: LACT1CAP19 PO (14:20)
== END 2018-04-29 16:59 | disposition home or self-care (01) | DRG 208 ==
LOC: EDBD 23:25 → ER 23:25 → 1 WEST ICU 04-26 01:52 → 5 NORTH 04-28 11:11
PROVIDERS: ADMIT Internal Medicine; ATTEND Internal Medicine
PROC: 5A1945Z Respiratory Ventilation, 24-96 Consecutive Hours (ICD-10-PCS; principal; 2018-04-26)
PROC: 0BH17EZ Insertion of Endotracheal Airway into Trachea, Via Natural or Artificial Opening (ICD-10-PCS; 2018-04-26)
DX: J96.01 Acute respiratory failure with hypoxia (principal); J45.902 Unspecified asthma with status asthmaticus; N39.0 Urinary tract infection, site not specified; F12.90 Cannabis use, unspecified, uncomplicated; Z82.5 Family history of asthma and other chronic lower respiratory diseases; Z79.899 Other long term (current) drug therapy
CPT/HCPCS: 31500; 36415; 36600; 51702; 71045; 80048; 80053; 80307; 81001; 82805; 83605; 83880; 84145; 84484; 85007; 85025; 85379; 87040; 87641; 87804; 93005; 94002; 94003; 94640; 96361; 96365; 96375; 99291; J1650; J1956; J2250; J2270; J2543; J2704; J2930; J3010; J3370; J3475; J3490; J7030; J7512; J7620